=== PATIENT | female | born 1980 | race Caucasian/White ===

== ENCOUNTER 2016-08-23 16:48 | Emergency (ER) | payer MEDICAID ==
[~2016-08-23] VITALS: Wt 76.0 kg
[~2016-08-23 16:48] MED LIST: CALC-649; FAMO-18 PO; FERR27TA; HYDR-3498 PO; IBUP-1542 PO; NITR-58 PO; PREN1TAB12
[2016-08-23 19:05] LABS: ADD UMIC YES; URINE BILIRUBIN (Dip) NEGATIVE (NEGATIVE); URINE BLOOD (Dip) 3+ (NEGATIVE); URINE COLOR LT. YELLOW (YELLOW); URINE GLUCOSE (Dip) NEGATIVE (NEGATIVE); URINE KETONES (Dip) NEGATIVE (NEGATIVE); URINE LEUKOCYTE ESTERASE (Dip) 1+ (NEGATIVE); URINE NITRITE (Dip) NEGATIVE (NEGATIVE); URINE TOTAL PROTEIN (Dip) NEGATIVE (NEGATIVE); URINE UROBILINOGEN (Dip) 0.2 E.U./dL (0.1-1.0)
[2016-08-23 19:25] LABS: BACTERIA,URINE MODERATE; URINE RBCS >200 /HPF (0)
[2016-08-23] MEDS ORDERED: CIPR500T4 PO (19:37)
[2016-08-23 19:49] VITALS: BP 118/59; PULSE 65; RESP 18; TEMP 98.2
--- NOTE | 2016-08-24 02:48 | ERA ---
ER Documentation Chief Complaint Date/Time DATE: 08/24/16 TIME: 02:44 Chief Complaint L RIB AND BREAST PAIN X 1 WEEK HPI Patient is a 36-year-old female with a chief complaint of bleeding 1 week. Patient was seen by her COMMERCIAL ANNOUNCER and told that she had "dirty blood". Patient's last menses was July 02, 2016. Patient denies fever. ROS All systems reviewed and are negative except as per history of present illness. Medications Home Meds Active Scripts Ciprofloxacin Hcl* (Ciprofloxacin Hcl*) 500 Mg Tablet, 500 MG PO BID for 5 Days , TAB Prov:AMADOR BALDERAS PA-C 08/23/16 Famotidine* (Pepcid*) 20 Mg Tablet, 20 MG PO BID for 4 Days, TAB Prov:MADHAV SERRANO PA-C 10/03/15 Hydrocodone Bit-Acetaminophen* ([place]*) 5-325 Mg Tab, 1 TAB PO Q6 Y for PAIN, # 7 TAB Prov:MADHAV SERRANO PA-C 10/03/15 Nitrofurantoin Monohyd Macrocr* (Macrobid*) 100 Mg Capsr, 100 MG PO BID, #14 CAP 0 Refills Prov:PEBBLES ROJO PA-C 08/01/15 Ibuprofen* (Motrin*) 600 Mg Tab, 600 MG PO BID, #30 TAB 0 Refills Prov:PEBBLES ROJO PA-C 08/01/15 Reported Medications Calcium Carbonate (Calcium) 1 Tab Tablet 10/26/09 Ferrous Sulfate (Iron) 1 Tab Tablet 10/26/09 Vit/Fe Fumarate/Fa ( 1-1 Tablet) 1 Tab Tablet 05/18/09 Allergies Allergies: Coded Allergies: No Known Drug Allergies (Verified Allergy, Mild, 05/18/09) PMhx/Soc History of Surgery: Yes (NOSE SURGERY) Anesthesia Reaction: No Hx Neurological Disorder: No Hx Respiratory Disorders: Yes (ASTHMA) Hx Cardiac Disorders: No Hx Psychiatric Problems: No Hx Miscellaneous Medical Probl: No Hx Alcohol Use: No Hx Substance Use: No Hx Tobacco Use: No Physical Exam Vitals Vital Signs Date Time Temp Pulse Resp B/P Pulse Ox O2 Delivery O2 Flow Rate FiO2 08/23/16 19:49 98.2 65 18 118/59 99 08/23/16 16:49 98.0 78 18 115/57 99 Physical Exam Const: Obese 36-year-old female Head: Atraumatic Eyes: Normal Conjunctiva ENT: Normal External Ears, Nose and Mouth. Neck: Full range of motion..~ No meningismus. Resp: Clear to auscultation bilaterally Cardio: Regular rate and rhythm, no murmurs Abd: Soft, non tender, non distended. Normal bowel sounds. Mild suprapubic tenderness Skin: No petechiae or rashes Back: No midline or flank tenderness Ext: No cyanosis, or edema Neur: Awake and alert Psych: Normal Mood and Affect Results 24 hrs Laboratory Tests Test 08/23/16 18:50 Urine Color LT. YELLOW Urine Clarity SLIGHTLY CLOUDY Urine pH 7.5 Urine Specific [place] 1.010 Urine Ketones NEGATIVE Urine Nitrite NEGATIVE Urine Bilirubin NEGATIVE Urine Urobilinogen 0.2 E.U./dL Urine Leukocyte Esterase 1+ Urine Microscopic RBC >200/HPF Urine Microscopic WBC 5-10/HPF Urine Epithelial Cells MODERATE Urine Bacteria MODERATE Urine Hemoglobin 3+ Urine Glucose NEGATIVE% Urine Total Protein NEGATIVE Procedures/MDM Patient has had "dirty blood." Patient also describes hematuria. Patient had mild suprapubic tenderness. Patient has no fever and has no CVA tenderness. Patient's test was negative at this time the most likely diagnosis is hemorrhagic cystitis. I discussed my assessment and plan with my attending and he is in agreement. Departure Diagnosis: Primary Impression: Hemorrhagic cystitis Additional Impression: Cystitis Condition: Stable Patient Instructions: Bladder Infection (Cystitis), Female (Child) Additional Instructions: Return to the emergency department if symptoms worsen or persist. Follow-up with a aircraft structural repairer within the next 1-3 days for further evaluation. AMADOR BALDERAS PA-C Aug 24, 2016 02:47
== END 2016-08-23 19:49 | disposition home or self-care (01) ==
LOC: FTE 16:48
DX: N30.90 Cystitis, unspecified without hematuria (principal); J45.909 Unspecified asthma, uncomplicated
CPT/HCPCS: 81001; 81003; 99283

== ENCOUNTER 2017-04-19 11:19 | Inpatient (IN) | payer MEDICAID ==
[~2017-04-19] VITALS: Ht 162.6 cm; Wt 94.6 kg
[~2017-04-19 11:19] MED LIST changes: +CIPR500T4 PO; -FAMO-18 PO; +FAMO-96 PO
[2017-04-19 11:32] VITALS: Ht 162.6 cm; Wt 94.6 kg
[2017-04-19 11:33] VITALS: BP 118/64; PULSE 62; RESP 18
[2017-04-19] MEDS: LACTATED RINGER'S 1,000 ML IV SCH ×4 (12:11→22:58)
--- NOTE | 2017-04-19 12:18 | NSTRPT ---
NST Information Datetime Report Generated by CPN: 04/19/2017 12:17 Datetime: 04/19/2017 09:10 NST Information EGA: 34.2 Test Number: 5 Time on Monitor: 04/19/2017 10:05 Time off Monitor: 04/19/2017 10:35 NST Duration (Min): 30 Reason for NST: Diabetes Mellitus Reason for NST Other: A1DM Test and Monitor Explained: Monitor Explained; Test Explained; Verbalized Understanding Pulse: 66 Resp: 17 SBP: 113 DBP: 64 Test Evaluation NST Interventions: PO Hydration; Reposition Patient Patient States Movement: Present Contraction Frequency: NONE FHR Baseline : 150 Variability: Moderate 6-25bpm Accelerations: 15X15 Decelerations: None FHR Category: Category I NST Results: Reactive Provider Notified: Dr Lorenzo Comments: Pt to U/S, AMALIA 5.5cm, cephalic. Report called to Dr Lorenzo, orders recieved to sent pt t o OB triage for SROM+. Pt rescheudled for NST and escorted to hospital. Electronically Signed By E-Signature: with User ID: [id number]
[2017-04-19] MEDS ORDERED: GLUCAGON 1 MG INJ IM PRN (15:30)
[2017-04-19] MEDS ORDERED: GLUCOSE GEL 15 GRAM TUBE BUCCAL PRN (15:30)
[2017-04-19] MEDS ORDERED: GLUCOSE GEL 15 GRAM TUBE PO PRN ×2 (15:30)
[2017-04-19] MEDS ORDERED: DEXTROSE 50% 50 ML SYRINGE IV PRN ×2 (15:30)
--- NOTE | 2017-04-19 15:42 | TRIAGE ---
OB Triage Datetime Report Generated by CPN: 04/19/2017 15:42 Datetime: 04/19/2017 14:50 Assessment Type: Admission Assessment Vaginal Bleeding: None Maternal Assessment Level of Consciousness: Fully Conscious DTR's/Clonus: DTRs 2+; No Clonus Headache: Denies Blurred Vision: No Respiratory Effort: Unlabored; Regular Rhythm; Equal Expansion Breath Sounds, Left: Clear and Equal Breath Sounds, Right: Clear and Equal Nausea/Vomiting: Denies RUQ Epigastric Pain: Denies Lower Extremities Edema: None Upper Extremities Edema: None Facial Edema: None Fall Risk Assessment History of Falling: (0) No Secondary Diagnosis: (0) No Ambulatory Aid: (0) Bedrest/Nurse Assist IV Therapy: (20) Yes (Annotations: rcvd. pt. w/ 18g iv rt. wrist lr at 125ml/hr infising) Gait: (0) Normal/Bedrest/Immobile Mental Status: (0) Oriented to Own Ability Fall Score: 20 Fall Risk Score Definition: No Risk: No action required Pain Assessment Pain Scale: 2 Pain Presence: Constant Pain Type: Burning Pain Location: when pt. urinates Datetime: 04/19/2017 13:56 Labor Evaluation Frequency: OCC Monitor Mode: External Quality: Mild Pattern: Normal: <= 5 Contractions in 10 Minutes Resting Tone Melvin: Relaxed Heart Rate FHR Baseline Rate: 140 Monitor Mode: External US FHR Baseline Changes: No Baseline Change Variability: Moderate 6-25 bpm Accelerations: 15X15 Decelerations: None Category: Category I Pain Presence: None/Denies Datetime: 04/19/2017 12:55 Labor Evaluation Frequency: OCC Monitor Mode: External Quality: Mild Pattern: Normal: <= 5 Contractions in 10 Minutes Resting Tone Melvin: Relaxed Heart Rate FHR Baseline Rate: 140 Monitor Mode: External US FHR Baseline Changes: No Baseline Change Variability: Moderate 6-25 bpm Accelerations: 15X15 Decelerations: None Category: Category I Pain Presence: None/Denies Datetime: 04/19/2017 12:14 Stage of : OB Triage Labor Evaluation Frequency: none Pattern: Normal: <= 5 Contractions in 10 Minutes Heart Rate FHR Baseline Rate: 150 Monitor Mode: External US FHR Baseline Changes: No Baseline Change Variability: Moderate 6-25 bpm Accelerations: 15X15 Decelerations: None Category: Category I Datetime: 04/19/2017 11:56 Stage of : OB Triage Headache: Denies Blurred Vision: No RUQ Epigastric Pain: Denies Facial Edema: None Labor Evaluation Frequency: non Heart Rate FHR Baseline Rate: 140 Monitor Mode: External US FHR Baseline Changes: No Baseline Change Variability: Moderate 6-25 bpm Accelerations: 15X15 Decelerations: None Category: Category I Pain Presence: None/Denies Vaginal Exam Membrane Status: Intact Datetime: 04/19/2017 11:34 Stage of : OB Triage Labor Evaluation Frequency: none Pattern: Normal: <= 5 Contractions in 10 Minutes Heart Rate FHR Baseline Rate: 145 Monitor Mode: External US FHR Baseline Changes: No Baseline Change Variability: Moderate 6-25 bpm Accelerations: 15X15 Decelerations: None Category: Category I Vaginal Exam Membrane Status: Intact Datetime: 04/19/2017 11:30 Stage of : OB Triage Maternal Assessment Level of Consciousness: Fully Conscious DTR's/Clonus: DTRs 2+; No Clonus Headache: Denies Blurred Vision: No Respiratory Effort: Unlabored; Regular Rhythm; Equal Expansion Breath Sounds, Left: Clear and Equal Breath Sounds, Right: Clear and Equal Nausea/Vomiting: Denies RUQ Epigastric Pain: Denies Lower Extremities Edema: None Degree: None Upper Extremities Edema: None Degree: None Facial Edema: None Temperature Route: Axillary Fall Risk Assessment History of Falling: (0) No Secondary Diagnosis: (0) No Ambulatory Aid: (0) Bedrest/Nurse Assist IV Therapy: (0) No Gait: (0) Normal/Bedrest/Immobile Mental Status: (0) Oriented to Own Ability Fall Score: 0 Fall Risk Score Definition: No Risk: No action required Monitor Mode: External Heart Rate FHR Baseline Rate: 140 Monitor Mode: External US Pain Assessment Pain Scale: 0 Datetime: 04/19/2017 10:36 Time of Arrival: 04/19/2017 10:50 EGA: 34.2 Arrived By: Ambulatory Arrived From: Office Chief Complaint: sent from NST for low AMALIA Movement: Present Contractions: Denies/Absent Rupture of Membranes: Denies Vaginal Bleeding: None Vaginal Discharge: Denies Recent Sexual Intercouse: Denies Abdominal Trauma: Not Applicable Patient Complaints: Other Initial Plan: efm/ iv hyration
[2017-04-19 16:21] LABS: ADD UMIC NO; UR ASCORBIC ACID NEGATIVE (NEGATIVE); UR BILIRUBIN (Dip) NEGATIVE (NEGATIVE); UR BLOOD (Dip) NEGATIVE (NEGATIVE); UR CLARITY CLEAR (CLEAR); UR COLOR STRAW (YELLOW); UR GLUCOSE (Dip) NEGATIVE (NEGATIVE); UR KETONES (Dip) 1+ mg/dL (NEGATIVE); UR LEUKOCYTE ESTERASE (Dip) NEGATIVE Leu/ul (NEGATIVE); UR NITRITE (Dip) NEGATIVE (NEGATIVE); UR SPECIFIC GRAVITY (Dip) 1.005 (1.003-1.030); UR TOTAL PROTEIN (Dip) NEGATIVE (NEGATIVE); UR UROBILINOGEN (Dip) NEGATIVE (NEGATIVE)
[2017-04-19] MEDS: ACCU-CHEK XX SCH ×3 (17:50→21:03)
--- NOTE | 2017-04-19 18:10 | HP ---
Date/Time of Note Date/Time of Note DATE: 04/19/17 TIME: 18:07 OB - History Hx of Present Free Text/Dictation Admitted through nondistressed test unit because of decreased amniotic fluid at 34 weeks Last Menstrual Period: Jul 20, 2016 Estimated Due Date: May 29, 2017 : 5 Para: 2 Spontaneous : 2 Care: Good Care Ultrasounds: Normal mid trimester US Obstetrical Complications: Gestational Diabetes Past Family/Social History * Past Medical, Surgical, Family and Obstetric Histories reviewed from chart. Blood Type: O+ Rubella: immune RPR/VDRL: Negative GBS Status: Unknown HBsAG: Negative OB Admission Exam Vital Signs Vital Signs Vital Signs Date Time Temp Pulse Resp B/P Pulse Ox O2 Delivery O2 Flow Rate FiO2 04/19/17 11:33 98.0 62 18 118/64 98 Physical Exam HEENT: WNL Heart: Rhythm Normal Lungs: Clear, Equal Abdomen: WNL Extremities: Normal Reflexes: Normal Cervical Dilatation: None Effacement: 0% Station: -3 Membranes: Intact Heart Rate: 140's Accelerations: Accelerations Present Decelerations: No Decelerations Varibility: Minimum Contractions on Admission: None Last 72 hourBlood Glucose Bedside Glucose - 72 Hours Test 04/19/17 17:39 Bedside Glucose 68mg/dL (70-220) L OB Assessment/Plan Other Assessment: 34 weeks gestation Decrease amniotic fluid Rupture of membrane is ruled out Other plan: We will perform IV hydration Recheck amniotic fluid volume next day ROBERT OTTO MD Apr 19, 2017 18:09
[2017-04-19] MEDS: CLOTRIMAZOLE 1% 45 GM VAG CR VAG SCH (22:05)
[2017-04-20] MEDS: CLOTRIMAZOLE 1% 30 GM CR TOP SCH ×4 (00:04→21:59)
[2017-04-20] MEDS: LACTATED RINGER'S 1,000 ML IV SCH ×3 (06:37→22:03)
[2017-04-20] MEDS: ACCU-CHEK XX SCH ×8 (08:07→21:00)
[2017-04-20] MEDS: PRENATAL VITAMIN PO SCH (09:17)
--- NOTE | 2017-04-20 09:55 | RADRPT ---
PROCEDURE: US OB biophysical profile. CLINICAL INDICATION: decreased movements, oligohydramnios TECHNIQUE: Multiple sonographic images of the pelvis were obtained. The images were reviewed on a PACS workstation. COMPARISON: No prior studies are available for comparison. FINDINGS: There is a single viable intrauterine gestation. Cardiac activity is present with 171 beats per min luci. There is a vertex presentation. The placenta is left lateral. There is no evidence of placental abruption. There is a decreased amount of amniotic fluid with an AMALIA = 5.9 cm. Biophysical profile: movement 2/2 tone 2/2. breathing 2/2 AMALIA 2/2 Total 12/25 RPTAT: AA . IMPRESSION: Normal biophysical profile. Oligohydramnios. . .Darwin Espinal MD, MD Date Time Electronically viewed and signed by .Darwin Espinal MD, MD on 04/20/2017 09:54 .S/
--- NOTE | 2017-04-20 15:30 | PN ---
Date/Time of Note Date/Time of Note DATE: 04/20/17 TIME: 15:28 OB Subjective Subjective Subjective No major complaints Feels the baby moves well OB Objective Objective Objective Vital signs stable General physical exam is unchanged heart tones are reactive AMALIA is 5.9 OB Assessment/Plan Other Assessment: Decrease amniotic fluid Gestational diabetes 34 weeks gestation Other plan: We will obtain perinatology consult and possibly DC patient home next ROBERT OTTO MD Apr 20, 2017 15:30
[2017-04-20] MEDS: CLOTRIMAZOLE 1% 45 GM VAG CR VAG SCH (20:32)
[2017-04-21] MEDS: CLOTRIMAZOLE 1% 30 GM CR TOP SCH (06:13)
[2017-04-21] MEDS: LACTATED RINGER'S 1,000 ML IV SCH (06:14)
[2017-04-21] MEDS: ACCU-CHEK XX SCH ×4 (07:30→12:16)
[2017-04-21] MEDS: PRENATAL VITAMIN PO SCH (08:48)
--- NOTE | 2017-04-21 10:52 | RADRPT ---
PROCEDURE: US OB limited. CLINICAL INDICATION: Oligohydramnios. TECHNIQUE: Multiple transabdominal sonographic images of the pelvis were obtained. COMPARISON: Biophysical profile 04/20/2017. FINDINGS: There is a single live intrauterine in cephalic presentation with heart motion of 14 2 beats per minute. The placenta is anteriorly located and without evidence of previa or abruption. AMALIA is 6.92 cm, previously 5.88 cm. IMPRESSION: Borderline oligohydramnios. RPTAT: QQ .Kerrie Chawla MD, MD Date Time Electronically viewed and signed by .Kerrie Chawla MD, on 04/21/2017 10:51 .T/
--- NOTE | 2017-04-21 13:59 | DS ---
Date/Time of Note Date/Time of Note Consulted perinatologist recommended DC patient home and follow patient in antepartum unit with biweekly antepartum testing DATE: 04/21/17 TIME: 13:56 Obstetrical Discharge Record Final Diagnosis Final Diagnosis: not delivered Other Final Diagnosis decreased amniotic fluid Complications Gestational Diabetes Condition on Discharge Physical Assessment Last Vitals: see nurses notes Voiding: Yes Bowel Movement: Yes Breast: Soft, non-tender, Filling Fundus: Other ( ) Abdomen and Incision: abdomen: gravid Episiotomy: N/A Calf Tenderness: No Patient Condition: Good ROBERT OTTO MD Apr 21, 2017 13:59
--- NOTE | 2017-04-21 14:01 | DS ---
Date/Time of Note Date/Time of Note DATE: 04/21/17 TIME: 14:00 Discharge Summary Admission/Discharge Info Admit Date/Time Apr 19, 2017 at 14:00 Discharge Date/Time April 21, 2017 Discharge Diagnosis 34 weeks gestation Decrease amniotic fluid Patient Condition: Good Consults Perinatologist Hx of Present Illness 36-year-old female admitted at 34 weeks gestation with decreased amniotic fluid and after a period of observation decision was made by perinatologist to follow the patient as outpatient Hospital Course Uncomplicated Home Meds Active Scripts Ciprofloxacin Hcl* (Ciprofloxacin Hcl*) 500 Mg Tablet, 500 MG PO BID for 5 Days , TAB Prov:AMADOR BALDERAS PA-C 08/23/16 Famotidine* (Pepcid*) 20 Mg Tablet, 20 MG PO BID for 4 Days, TAB Prov:MADHAV SERRANO PA-C 10/03/15 Hydrocodone Bit-Acetaminophen* ([place]*) 5-325 Mg Tab, 1 TAB PO Q6 Y for PAIN, # 7 TAB Prov:MADHAV SERRANO PA-C 10/03/15 Nitrofurantoin Monohyd Macrocr* (Macrobid*) 100 Mg Capsr, 100 MG PO BID, #14 CAP 0 Refills Prov:PEBBLES ROJO PA-C 08/01/15 Ibuprofen* (Motrin*) 600 Mg Tab, 600 MG PO BID, #30 TAB 0 Refills Prov:PEBBLES ROJO PA-C 08/01/15 Reported Medications Calcium Carbonate (Calcium) 1 Tab Tablet 10/26/09 Ferrous Sulfate (Iron) 1 Tab Tablet 10/26/09 Vit/Fe Fumarate/Fa ( 1-1 Tablet) 1 Tab Tablet 05/18/09 Follow-up Plan Next day or 2 days for antepartum testing Primary Care Provider Care Physician No Primary Time spent on discharge: > 30 minutes Pending Labs Laboratory Tests Test 04/20/17 15:13 04/20/17 17:19 04/20/17 20:08 04/21/17 08:01 Bedside Glucose 91mg/dL (70-220) 72mg/dL (70-220) 88mg/dL (70-220) 67mg/dL (70-220) Test 04/21/17 11:01 Bedside Glucose 87mg/dL (70-220) ROBERT OTTO MD Apr 21, 2017 14:01
--- NOTE | 2017-04-21 14:03 | PD.PPDC ---
[employer] Discharge Instruction Provider Information Physician Information 36-year-old female at 34 weeks gestation admitted with decreased amniotic fluid which spontaneously and with IV hydration ameliorated Diagnosis Final Diagnosis: 34 weeks gestation with decreased amniotic fluid Condition Patient Condition: Good Diet Diet: Resume Regular Diet Activity/Restrictions Activity: Normal Activity May Shower Return to Work or School: Apr 22, 2017 Follow-up Follow-up with Physician: 1, 2, Day/Days (In antepartum testing unit, to 3 days in clinic) Return to clinic for Comment: Refer to antepartum testing unit for antepartum testing ROBERT OTTO MD Apr 21, 2017 14:03
== END 2017-04-21 14:53 | disposition home or self-care (01) | DRG 781 ==
LOC: OBT 11:19 → L-D 11:20 → OBT 14:00 → OBG 14:00
PROVIDERS: ADMIT Obstetrics & Gynecology; ATTEND Obstetrics & Gynecology
DX: O41.8X30 Other specified disorders of amniotic fluid and membranes, third trimester, not applicable or unspecified (principal); O24.419 Gestational diabetes mellitus in pregnancy, unspecified control
CPT/HCPCS: 36415; 76816; 76818; 81003; 82962; 84112; 87086; 96360; 96361; G0463; J7120

== ENCOUNTER 2017-04-26 10:51 | Outpatient (CLI) | payer MEDICAID ==
[~2017-04-26] VITALS: Ht 160 cm; Wt 94.5 kg
[~2017-04-26 10:51] MED LIST changes: -CIPR500T4 PO; -HYDR-3498 PO; -IBUP-1542 PO; -NITR-58 PO
--- NOTE | 2017-04-26 11:42 | NSTRPT ---
NST Information Datetime Report Generated by CPN: 04/26/2017 11:41 Datetime: 04/26/2017 08:08 NST Information Test Number: 5 Reason for NST: Diabetes Mellitus; Oligohydramnios; Previous Demise; Other Reason for NST Other: A1DM Test Evaluation Comments: To u/s, AMALIA 5.7, Cephalic. NST/AMALIA reviewed by Dr Rey, requests BPP. BPP 48 (0-tone, 0-movement). Recommends extended efm. 1015-Report to duran Drake received , report called to Zina ARTEAGA/Triage. POC explained to pt by Hong Lim, states understanding and denies further questions at this time. Datetime: 04/22/2017 09:21 Electronically Signed By E-Signature: with User ID: [id number]
[2017-04-26 11:47] VITALS: Ht 160 cm; Wt 94.5 kg
[2017-04-26] MEDS ORDERED: LACTATED RINGER'S 1,000 ML IV ONE (12:00)
--- NOTE | 2017-04-26 13:33 | RADRPT ---
PROCEDURE: Obstetrical ultrasound for biophysical profile CLINICAL INDICATION: Biophysical profile. . TECHNIQUE: Obstetrical ultrasound of the uterus for biophysical profile. Transabdominal views are obtained. COMPARISON: MG 04/26/2017; US PELVIS 04/20/2017 FINDINGS: Single intrauterine gestation. Presentation: Cephalic. Placenta: Anterior. No evidence of placental abruption. No evidence of placenta previa. breathing movement = 2/2 tone = 2/2 motion = 2/2 AMALIA = 2/2 AMALIA = 5.0 cm heart rate: 158 beats per minute IMPRESSION: Single intrauterine gestation. Biophysical profile 12/25 Borderline oligohydramnios. RPTAT: AADD .Rome Dunn MD, MD Date Time Electronically viewed and signed by .Rome Dunn MD, on 04/26/2017 13:33 .B/
--- NOTE | 2017-04-26 14:19 | NSTRPT ---
NST Information Datetime Report Generated by CPN: 04/26/2017 14:19 Datetime: 04/26/2017 08:08 NST Information EGA: 35.2 Time on Monitor: 04/26/2017 08:34 Time off Monitor: 04/26/2017 09:32 NST Duration (Min): 58 Test and Monitor Explained: Monitor Explained; Test Explained; Verbalized Understanding Pulse: 77 Resp: 18 SBP: 107 DBP: 62 Test Evaluation NST Interventions: None Patient States Movement: Present Contraction Frequency: none FHR Baseline : 150 Variability: Moderate 6-25bpm Accelerations: 15X15 FHR Category: Category I NST Results: Reactive Electronically Signed By E-Signature: with User ID: [id number], Addendum/Amendment: Discussed with Dr. Lorenzo. Given this patient's past history, I do not anticip ate that she will have a sustained elevation in AMALIA. I would favor daily BPP; if the BPP is 8/10 it would be acceptable to discharge her with close follow up. If 6/10 I would continue observation in the hospital. If the BPP is less than 6/10 I would proceed to delivery.
--- NOTE | 2017-04-26 15:13 | PN ---
Triage Information Date/Time April 26, 2017 Reason for visit: Sent him for biophysical profile because of a poor biophysical profile and nonstress test unit Weeks of Gestation 35 weeks /Para 5 para Diabetes: gestational Diabetes management: diet controlled Hypertention: none Additional information Patient with chronically low amniotic fluid and poor biophysical today was 17 by perinatologist we be evaluated for another biophysical profile and as much as nondistressed test remained reactive Recommendation of Dr. Chow was to start IV hydration and repeat the biophysical and 2 hours After 2 hours biophysical profile is 8 out 8 As mentioned before patient chronically low amniotic fluid Currently has no complaint of decreased movement We will continue daily nondistressed test and biophysical profile on this lady because of history of demise and previous Objective Heart Rate: 150's Heart Rate Comments Reactive Contractions: None Exam Deferred Results/Medications Imaging Results Single intrauterine gestation. Biophysical profile 12/25 Borderline oligohydramnios. Disposition: Discharge Assessment/Plan Patient was discharged home Kick count instructions given Recommended patient to have dating on a stress test and biophysical profile at least until 37 weeks We will follow patient very very close ROBERT OTTO MD Apr 26, 2017 15:13
--- NOTE | 2017-04-26 16:16 | TRIAGE ---
OB Triage Datetime Report Generated by CPN: 04/26/2017 16:15 Datetime: 04/26/2017 10:53 Stage of : OB Triage Datetime: 04/26/2017 08:22 Time of Arrival: 04/26/2017 10:48 EGA: 35.2 Arrived By: Ambulatory Arrived From: Other Unit in Hospital Chief Complaint: BPP 4/8 in NST, prolonged monitoring Movement: Decreased Contractions: Denies/Absent Rupture of Membranes: Denies Vaginal Bleeding: Normal Show Vaginal Discharge: Denies Recent Sexual Intercouse: Denies Abdominal Trauma: Not Applicable Patient Complaints: None Time Provider Notified: 04/26/2017 11:08 Provider Notified: Bj Initial Plan: BPP, NST, IV hydration Datetime: 04/21/2017 13:27 Stage of : Antepartum Maternal Assessment Level of Consciousness: Fully Conscious Headache: Denies Nausea/Vomiting: Denies RUQ Epigastric Pain: Denies Labor Evaluation Frequency: 0/hr Monitor Mode: External Heart Rate FHR Baseline Rate: 150 Monitor Mode: External US Variability: Moderate 6-25 bpm Accelerations: 15X15 Decelerations: None Pain Assessment Pain Scale: 0 Pain Presence: None/Denies Vaginal Bleeding: None Datetime: 04/21/2017 12:20 Stage of : Antepartum Maternal Assessment Level of Consciousness: Fully Conscious Headache: Denies Nausea/Vomiting: Denies RUQ Epigastric Pain: Denies Pain Assessment Pain Scale: 0 Pain Presence: None/Denies Vaginal Bleeding: None Datetime: 04/21/2017 12:15 Stage of : Antepartum Maternal Assessment Level of Consciousness: Fully Conscious Headache: Denies Nausea/Vomiting: Denies RUQ Epigastric Pain: Denies Labor Evaluation Frequency: 0/hr Monitor Mode: External Heart Rate FHR Baseline Rate: 150 Monitor Mode: External US Variability: Moderate 6-25 bpm Accelerations: 15X15 Decelerations: None Pain Assessment Pain Scale: 0 Pain Presence: None/Denies Vaginal Bleeding: None Datetime: 04/21/2017 11:00 Stage of : Antepartum Maternal Assessment Level of Consciousness: Fully Conscious Headache: Denies Nausea/Vomiting: Denies RUQ Epigastric Pain: Denies Labor Evaluation Frequency: 0/hr Monitor Mode: External Heart Rate FHR Baseline Rate: 145 Monitor Mode: External US Variability: Moderate 6-25 bpm Accelerations: 15X15 Decelerations: None Pain Assessment Pain Scale: 0 Pain Presence: None/Denies Vaginal Bleeding: None Datetime: 04/21/2017 10:00 Stage of : Antepartum Maternal Assessment Level of Consciousness: Fully Conscious Headache: Denies Nausea/Vomiting: Denies RUQ Epigastric Pain: Denies Labor Evaluation Frequency: 0/hr Monitor Mode: External Heart Rate FHR Baseline Rate: 145 Monitor Mode: External US Variability: Moderate 6-25 bpm Accelerations: 15X15 Decelerations: None Pain Assessment Pain Scale: 0 Pain Presence: None/Denies Vaginal Bleeding: None Datetime: 04/21/2017 09:00 Stage of : Antepartum Maternal Assessment Level of Consciousness: Fully Conscious Headache: Denies Nausea/Vomiting: Denies RUQ Epigastric Pain: Denies Labor Evaluation Frequency: 0/hr Monitor Mode: External Heart Rate FHR Baseline Rate: 145 Monitor Mode: External US Variability: Moderate 6-25 bpm Accelerations: 15X15 Decelerations: None Pain Assessment Pain Scale: 0 Pain Presence: None/Denies Vaginal Bleeding: None Datetime: 04/21/2017 08:46 Pain Presence: None/Denies Datetime: 04/21/2017 08:00 Stage of : Antepartum Maternal Assessment Level of Consciousness: Fully Conscious Headache: Denies Blurred Vision: No Respiratory Effort: Unlabored Nausea/Vomiting: Denies Temperature Route: Oral Bedside Blood Glucose: 67 Labor Evaluation Frequency: 0/hr Monitor Mode: External Datetime: 04/21/2017 07:40 Assessment Type: Ongoing Assessment Maternal Assessment Level of Consciousness: Fully Conscious DTR's/Clonus: DTRs 2+; No Clonus Headache: Denies Blurred Vision: No Respiratory Effort: Unlabored; Regular Rhythm; Equal Expansion Breath Sounds, Left: Clear and Equal Breath Sounds, Right: Clear and Equal Nausea/Vomiting: Denies RUQ Epigastric Pain: Denies Lower Extremities Edema: None Upper Extremities Edema: None Facial Edema: None Fall Risk Assessment History of Falling: (0) No Secondary Diagnosis: (0) No Ambulatory Aid: (0) Bedrest/Nurse Assist IV Therapy: (20) Yes Gait: (0) Normal/Bedrest/Immobile Mental Status: (0) Oriented to Own Ability Fall Score: 20 Fall Risk Score Definition: No Risk: No action required Datetime: 04/21/2017 07:30 Stage of : Antepartum Labor Evaluation Frequency: 0/hr Monitor Mode: External Heart Rate FHR Baseline Rate: 140 Monitor Mode: External US Variability: Moderate 6-25 bpm Accelerations: 15X15 Decelerations: None Category: Category I Datetime: 04/21/2017 06:58 Stage of : Antepartum Labor Evaluation Frequency: 0 Monitor Mode: External Pattern: Normal: <= 5 Contractions in 10 Minutes Heart Rate FHR Baseline Rate: 140 Monitor Mode: External US Variability: Moderate 6-25 bpm Accelerations: 15X15 Decelerations: None Pain Assessment Pain Scale: 0 Pain Presence: None/Denies Datetime: 04/21/2017 06:00 Stage of : Antepartum Labor Evaluation Frequency: 0 Monitor Mode: External Pattern: Normal: <= 5 Contractions in 10 Minutes Heart Rate FHR Baseline Rate: 140 Monitor Mode: External US Variability: Moderate 6-25 bpm Accelerations: 15X15 Decelerations: None Category: Category I Pain Assessment Pain Scale: 0 Pain Presence: None/Denies Datetime: 04/21/2017 05:00 Stage of : Antepartum Labor Evaluation Frequency: 0 Monitor Mode: External Pattern: Normal: <= 5 Contractions in 10 Minutes Heart Rate FHR Baseline Rate: 140 Monitor Mode: External US Variability: Moderate 6-25 bpm Accelerations: 15X15 Decelerations: None Category: Category I Pain Assessment Pain Scale: 0 Pain Presence: None/Denies Datetime: 04/21/2017 04:00 Stage of : Antepartum Labor Evaluation Frequency: 0 Monitor Mode: External Pattern: Normal: <= 5 Contractions in 10 Minutes Heart Rate FHR Baseline Rate: 140 Monitor Mode: External US Variability: Moderate 6-25 bpm Accelerations: 15X15 Decelerations: None Category: Category I Pain Assessment Pain Scale: 0 Pain Presence: None/Denies Datetime: 04/21/2017 03:00 Stage of : Antepartum Labor Evaluation Frequency: 0 Monitor Mode: External Pattern: Normal: <= 5 Contractions in 10 Minutes Heart Rate FHR Baseline Rate: 140 Monitor Mode: External US Variability: Moderate 6-25 bpm Accelerations: 15X15 Decelerations: None Category: Category I Pain Assessment Pain Scale: 0 Pain Presence: None/Denies Datetime: 04/21/2017 02:00 Stage of : Antepartum Labor Evaluation Frequency: 0 Monitor Mode: External Pattern: Normal: <= 5 Contractions in 10 Minutes Heart Rate FHR Baseline Rate: 135 Monitor Mode: External US Variability: Moderate 6-25 bpm Accelerations: 15X15 Decelerations: None Category: Category I Pain Assessment Pain Scale: 0 Datetime: 04/21/2017 01:00 Stage of : Antepartum Labor Evaluation Frequency: 0 Monitor Mode: External Pattern: Normal: <= 5 Contractions in 10 Minutes Heart Rate FHR Baseline Rate: 130 Monitor Mode: External US Variability: Moderate 6-25 bpm Accelerations: 15X15 Decelerations: None Category: Category I Pain Assessment Pain Scale: 0 Datetime: 04/21/2017 00:00 Stage of : Antepartum Labor Evaluation Frequency: 0 Monitor Mode: External Pattern: Normal: <= 5 Contractions in 10 Minutes Heart Rate FHR Baseline Rate: 140 Monitor Mode: External US Variability: Moderate 6-25 bpm Accelerations: 15X15 Decelerations: None Category: Category I Pain Assessment Pain Scale: 0 Pain Presence: None/Denies Datetime: 04/20/2017 23:00 Stage of : Antepartum Labor Evaluation Frequency: 0 Monitor Mode: External Pattern: Normal: <= 5 Contractions in 10 Minutes Heart Rate FHR Baseline Rate: 135 Monitor Mode: External US Variability: Moderate 6-25 bpm Accelerations: 15X15 Decelerations: None Category: Category I Pain Assessment Pain Scale: 0 Pain Presence: None/Denies Datetime: 04/20/2017 22:00 Stage of : Antepartum Maternal Assessment Level of Consciousness: Fully Conscious Labor Evaluation Frequency: 0 Monitor Mode: External Pattern: Normal: <= 5 Contractions in 10 Minutes Heart Rate FHR Baseline Rate: 135 Monitor Mode: External US Variability: Moderate 6-25 bpm Accelerations: 15X15 Decelerations: None Category: Category I Pain Assessment Pain Scale: 0 Pain Presence: None/Denies Datetime: 04/20/2017 21:00 Stage of : Antepartum Maternal Assessment Level of Consciousness: Fully Conscious Labor Evaluation Frequency: x1 Monitor Mode: External Duration (sec)2399: 50 Quality: Mild Pattern: Normal: <= 5 Contractions in 10 Minutes Heart Rate FHR Baseline Rate: 140 Monitor Mode: External US Variability: Moderate 6-25 bpm Accelerations: 15X15 Decelerations: Variable Category: Category II Pain Assessment Pain Scale: 0 Pain Presence: None/Denies Datetime: 04/20/2017 20:14 Assessment Type: Ongoing Assessment Maternal Assessment Level of Consciousness: Fully Conscious DTR's/Clonus: DTRs 2+; No Clonus Headache: Denies Blurred Vision: No Respiratory Effort: Unlabored; Regular Rhythm; Equal Expansion Nausea/Vomiting: Denies RUQ Epigastric Pain: Denies Lower Extremities Edema: None Upper Extremities Edema: None Facial Edema: None Fall Risk Assessment History of Falling: (0) No Secondary Diagnosis: (0) No Ambulatory Aid: (0) Bedrest/Nurse Assist IV Therapy: (0) No Gait: (0) Normal/Bedrest/Immobile Mental Status: (0) Oriented to Own Ability Fall Score: 0 Fall Risk Score Definition: No Risk: No action required Datetime: 04/20/2017 20:00 Stage of : Antepartum Maternal Assessment Level of Consciousness: Fully Conscious Temperature Route: Oral Labor Evaluation Frequency: x1 Monitor Mode: External Duration (sec)2399: 50 Quality: Mild Pattern: Normal: <= 5 Contractions in 10 Minutes Heart Rate FHR Baseline Rate: 140 Monitor Mode: External US Variability: Moderate 6-25 bpm Accelerations: 15X15 Decelerations: None Category: Category I Pain Assessment Pain Scale: 0 Pain Presence: None/Denies Datetime: 04/20/2017 19:00 Stage of : Antepartum Maternal Assessment Level of Consciousness: Fully Conscious Headache: Denies Nausea/Vomiting: Denies RUQ Epigastric Pain: Denies Labor Evaluation Frequency: x1 Monitor Mode: External Duration (sec)2399: 50 Quality: Mild Pattern: Normal: <= 5 Contractions in 10 Minutes Heart Rate FHR Baseline Rate: 145 Monitor Mode: External US Variability: Moderate 6-25 bpm Accelerations: 15X15 Decelerations: None Category: Category I Pain Assessment Pain Scale: 0 Pain Presence: None/Denies Vaginal Bleeding: None Datetime: 04/20/2017 18:00 Stage of : Antepartum Maternal Assessment Level of Consciousness: Fully Conscious Headache: Denies Nausea/Vomiting: Denies RUQ Epigastric Pain: Denies Labor Evaluation Frequency: 0/hr Monitor Mode: External Heart Rate FHR Baseline Rate: 150 Monitor Mode: External US Variability: Moderate 6-25 bpm Accelerations: 15X15 Decelerations: None Pain Assessment Pain Scale: 0 Pain Presence: None/Denies Vaginal Bleeding: None Datetime: 04/20/2017 17:00 Stage of : Antepartum Maternal Assessment Level of Consciousness: Fully Conscious Headache: Denies Nausea/Vomiting: Denies RUQ Epigastric Pain: Denies Labor Evaluation Frequency: 0/hr Monitor Mode: External Heart Rate FHR Baseline Rate: 150 Monitor Mode: External US Variability: Moderate 6-25 bpm Accelerations: 15X15 Decelerations: None Pain Assessment Pain Scale: 0 Pain Presence: None/Denies Vaginal Bleeding: None Datetime: 04/20/2017 15:12 Maternal Assessment Level of Consciousness: Fully Conscious Headache: Denies Blurred Vision: No Respiratory Effort: Unlabored Nausea/Vomiting: Denies Pain Presence: None/Denies Datetime: 04/20/2017 15:00 Stage of : Antepartum Maternal Assessment Level of Consciousness: Fully Conscious Headache: Denies Nausea/Vomiting: Denies RUQ Epigastric Pain: Denies Labor Evaluation Frequency: 0/hr Monitor Mode: External Heart Rate FHR Baseline Rate: 145 Monitor Mode: External US Variability: Moderate 6-25 bpm Accelerations: 15X15 Decelerations: None Pain Assessment Pain Scale: 0 Pain Presence: None/Denies Vaginal Bleeding: None Datetime: 04/20/2017 14:00 Stage of : Antepartum Maternal Assessment Level of Consciousness: Fully Conscious Headache: Denies Nausea/Vomiting: Denies RUQ Epigastric Pain: Denies Labor Evaluation Frequency: 0/hr Monitor Mode: External Heart Rate FHR Baseline Rate: 145 Monitor Mode: External US Variability: Moderate 6-25 bpm Accelerations: 15X15 Decelerations: None Pain Assessment Pain Scale: 0 Pain Presence: None/Denies Vaginal Bleeding: None Datetime: 04/20/2017 13:00 Stage of : Antepartum Maternal Assessment Level of Consciousness: Fully Conscious Headache: Denies Nausea/Vomiting: Denies RUQ Epigastric Pain: Denies Labor Evaluation Frequency: 0/hr Monitor Mode: External Heart Rate FHR Baseline Rate: 150 Monitor Mode: External US Variability: Moderate 6-25 bpm Accelerations: 15X15 Decelerations: None Pain Assessment Pain Scale: 0 Pain Presence: None/Denies Vaginal Bleeding: None Datetime: 04/20/2017 12:00 Stage of : Antepartum Maternal Assessment Level of Consciousness: Fully Conscious Headache: Denies Nausea/Vomiting: Denies RUQ Epigastric Pain: Denies Labor Evaluation Frequency: 0/hr Monitor Mode: External Heart Rate FHR Baseline Rate: 150 Monitor Mode: External US Variability: Moderate 6-25 bpm Accelerations: 15X15 Decelerations: None Pain Assessment Pain Scale: 0 Pain Presence: None/Denies Vaginal Bleeding: None Datetime: 04/20/2017 11:00 Stage of : Antepartum Maternal Assessment Level of Consciousness: Fully Conscious Headache: Denies Nausea/Vomiting: Denies RUQ Epigastric Pain: Denies Labor Evaluation Frequency: 0/hr Monitor Mode: External Heart Rate FHR Baseline Rate: 150 Monitor Mode: External US Variability: Moderate 6-25 bpm Accelerations: 15X15 Decelerations: None Pain Assessment Pain Scale: 0 Pain Presence: None/Denies Vaginal Bleeding: None Datetime: 04/20/2017 10:00 Stage of : Antepartum Maternal Assessment Level of Consciousness: Fully Conscious Headache: Denies Nausea/Vomiting: Denies RUQ Epigastric Pain: Denies Labor Evaluation Frequency: 0/hr Monitor Mode: External Heart Rate FHR Baseline Rate: 145 Monitor Mode: External US Variability: Moderate 6-25 bpm Accelerations: 15X15 Decelerations: None Pain Assessment Pain Scale: 0 Pain Presence: None/Denies Vaginal Bleeding: None Datetime: 04/20/2017 09:57 Maternal Assessment Level of Consciousness: Fully Conscious Headache: Denies Blurred Vision: No Nausea/Vomiting: Denies Pain Presence: None/Denies Datetime: 04/20/2017 09:16 Maternal Assessment Level of Consciousness: Fully Conscious Headache: Denies Blurred Vision: No Respiratory Effort: Unlabored Nausea/Vomiting: Denies Pain Presence: None/Denies Datetime: 04/20/2017 09:00 Stage of : Antepartum Maternal Assessment Level of Consciousness: Fully Conscious Headache: Denies Nausea/Vomiting: Denies RUQ Epigastric Pain: Denies Labor Evaluation Frequency: 0/hr Monitor Mode: External Heart Rate FHR Baseline Rate: 150 Monitor Mode: External US Variability: Moderate 6-25 bpm Accelerations: 15X15 Decelerations: None Pain Assessment Pain Scale: 0 Pain Presence: None/Denies Vaginal Bleeding: None Datetime: 04/20/2017 08:05 Maternal Assessment Level of Consciousness: Fully Conscious Headache: Denies Blurred Vision: No Nausea/Vomiting: Denies Bedside Blood Glucose: 78 Datetime: 04/20/2017 08:00 Stage of : Antepartum Maternal Assessment Level of Consciousness: Fully Conscious Headache: Denies Nausea/Vomiting: Denies RUQ Epigastric Pain: Denies Labor Evaluation Frequency: 0/hr Monitor Mode: External Heart Rate FHR Baseline Rate: 150 Monitor Mode: External US Variability: Moderate 6-25 bpm Accelerations: 15X15 Decelerations: None Pain Assessment Pain Scale: 0 Pain Presence: None/Denies Vaginal Bleeding: None Datetime: 04/20/2017 07:56 Assessment Type: Ongoing Assessment Maternal Assessment Level of Consciousness: Fully Conscious Headache: Denies Blurred Vision: No Respiratory Effort: Unlabored; Regular Rhythm; Equal Expansion Nausea/Vomiting: Denies RUQ Epigastric Pain: Denies Lower Extremities Edema: None Degree: None Upper Extremities Edema: None Degree: None Facial Edema: None Fall Risk Assessment History of Falling: (0) No Secondary Diagnosis: (0) No Ambulatory Aid: (0) Bedrest/Nurse Assist IV Therapy: (20) Yes Gait: (0) Normal/Bedrest/Immobile Mental Status: (0) Oriented to Own Ability Fall Score: 20 Fall Risk Score Definition: No Risk: No action required Datetime: 04/20/2017 07:31 Maternal Assessment Level of Consciousness: Fully Conscious Headache: Denies Blurred Vision: No Respiratory Effort: Unlabored Breath Sounds, Left: Clear and Equal Breath Sounds, Right: Clear and Equal Nausea/Vomiting: Denies RUQ Epigastric Pain: Denies Bedside Blood Glucose: 65 Resting Tone [place]: Relaxed Pain Presence: None/Denies Datetime: 04/20/2017 07:24 Stage of : Antepartum Maternal Assessment Level of Consciousness: Fully Conscious Headache: Denies Nausea/Vomiting: Denies RUQ Epigastric Pain: Denies Temperature Route: Oral Labor Evaluation Frequency: 0/hr Monitor Mode: External Heart Rate FHR Baseline Rate: 150 Monitor Mode: External US Variability: Moderate 6-25 bpm Accelerations: 15X15 Decelerations: None Pain Assessment Pain Scale: 0 Pain Presence: None/Denies Vaginal Exam Membrane Status: Intact Vaginal Bleeding: None Datetime: 04/20/2017 07:14 Assessment Type: Ongoing Assessment Datetime: 04/20/2017 07:00 Labor Evaluation Frequency: x2 Monitor Mode: External Duration (sec)2399: 60-70 Quality: Mild Resting Tone [place]: Relaxed Heart Rate FHR Baseline Rate: 140 Monitor Mode: External US Variability: Moderate 6-25 bpm Accelerations: 15X15 Decelerations: None Category: Category I Pain Presence: None/Denies Datetime: 04/20/2017 06:31 Stage of : Antepartum Maternal Assessment Level of Consciousness: Fully Conscious Headache: Denies Blurred Vision: No Temperature Route: Oral Pain Presence: None/Denies Vaginal Bleeding: None Datetime: 04/20/2017 06:00 Labor Evaluation Frequency: x1 Monitor Mode: External Duration (sec)2399: 80 Quality: Mild Resting Tone [place]: Relaxed Heart Rate FHR Baseline Rate: 135 Monitor Mode: External US Variability: Moderate 6-25 bpm Accelerations: 15X15 Decelerations: None Category: Category I Datetime: 04/20/2017 05:00 Labor Evaluation Frequency: x1 Monitor Mode: External Duration (sec)2399: 60 Quality: Mild Resting Tone [place]: Relaxed Heart Rate FHR Baseline Rate: 140 Monitor Mode: External US Variability: Moderate 6-25 bpm Accelerations: 15X15 Decelerations: None Category: Category I Pain Presence: None/Denies Datetime: 04/20/2017 04:00 Maternal Assessment Level of Consciousness: Fully Conscious Headache: Denies Blurred Vision: No Nausea/Vomiting: Denies RUQ Epigastric Pain: Denies Facial Edema: None Labor Evaluation Frequency: 0 Monitor Mode: External Duration (sec)2399: denies Resting Tone [place]: Relaxed Heart Rate FHR Baseline Rate: 135 Monitor Mode: External US Variability: Moderate 6-25 bpm Accelerations: 15X15 Decelerations: None Category: Category I Pain Presence: None/Denies Datetime: 04/20/2017 03:00 Labor Evaluation Frequency: x1 Monitor Mode: External Duration (sec)2399: 60 Quality: Mild Resting Tone [place]: Relaxed Heart Rate FHR Baseline Rate: 135 Monitor Mode: External US Variability: Moderate 6-25 bpm Accelerations: 15X15 Decelerations: None Category: Category I Pain Presence: None/Denies Datetime: 04/20/2017 02:00 Labor Evaluation Frequency: x1 Monitor Mode: External Duration (sec)2399: 50 Quality: Mild Resting Tone [place]: Relaxed Heart Rate FHR Baseline Rate: 135 Monitor Mode: External US Variability: Moderate 6-25 bpm Accelerations: 15X15 Decelerations: None Category: Category I Datetime: 04/20/2017 01:00 Labor Evaluation Frequency: 0 Monitor Mode: External Duration (sec)2399: denies Resting Tone [place]: Relaxed Heart Rate FHR Baseline Rate: 135 Monitor Mode: External US Variability: Moderate 6-25 bpm Accelerations: 15X15 Decelerations: None Category: Category I Pain Presence: None/Denies Datetime: 04/20/2017 00:00 Labor Evaluation Frequency: x1/hr Monitor Mode: External Duration (sec)2399: 60 Quality: Mild Resting Tone [place]: Relaxed Heart Rate FHR Baseline Rate: 140 Monitor Mode: External US Variability: Moderate 6-25 bpm Accelerations: 15X15 Decelerations: None Category: Category I Pain Presence: None/Denies Datetime: 04/19/2017 23:00 Labor Evaluation Frequency: 0 Monitor Mode: External Duration (sec)2399: denies Resting Tone [place]: Relaxed Heart Rate FHR Baseline Rate: 140 Monitor Mode: External US Variability: Moderate 6-25 bpm Accelerations: 15X15 Decelerations: None Category: Category I Pain Presence: None/Denies Datetime: 04/19/2017 22:00 Labor Evaluation Frequency: 0 Monitor Mode: External Duration (sec)2399: denies Resting Tone [place]: Relaxed Heart Rate FHR Baseline Rate: 145 Monitor Mode: External US Variability: Moderate 6-25 bpm Accelerations: 15X15 Decelerations: None Category: Category I Pain Presence: None/Denies Datetime: 04/19/2017 21:00 Labor Evaluation Frequency: 0 Monitor Mode: External Resting Tone [place]: Relaxed Heart Rate FHR Baseline Rate: 140 Monitor Mode: External US Variability: Moderate 6-25 bpm Accelerations: 15X15 Decelerations: None Category: Category I Datetime: 04/19/2017 20:23 Bedside Blood Glucose: 95 Datetime: 04/19/2017 20:00 Labor Evaluation Frequency: x1/hr Monitor Mode: External Duration (sec)2399: 60 Quality: Mild Resting Tone [place]: Relaxed Heart Rate FHR Baseline Rate: 140 Monitor Mode: External US Variability: Moderate 6-25 bpm Accelerations: 15X15 Decelerations: None Category: Category I Pain Presence: None/Denies Datetime: 04/19/2017 19:27 Stage of : Antepartum Assessment Type: Ongoing Assessment Maternal Assessment Level of Consciousness: Fully Conscious DTR's/Clonus: DTRs 2+; No Clonus Headache: Denies Blurred Vision: No Respiratory Effort: Unlabored; Regular Rhythm; Equal Expansion Breath Sounds, Left: Clear and Equal Breath Sounds, Right: Clear and Equal Nausea/Vomiting: Denies RUQ Epigastric Pain: Denies Lower Extremities Edema: None Degree: None Upper Extremities Edema: None Degree: None Facial Edema: None Temperature Route: Oral Fall Risk Assessment History of Falling: (0) No Secondary Diagnosis: (0) No Ambulatory Aid: (0) Bedrest/Nurse Assist IV Therapy: (0) No Gait: (0) Normal/Bedrest/Immobile Mental Status: (0) Oriented to Own Ability Fall Score: 0 Fall Risk Score Definition: No Risk: No action required Pain Presence: None/Denies Vaginal Exam Membrane Status: Intact Vaginal Bleeding: None Datetime: 04/19/2017 18:00 Stage of : Antepartum Maternal Assessment Level of Consciousness: Fully Conscious Headache: Denies Nausea/Vomiting: Denies RUQ Epigastric Pain: Denies Labor Evaluation Frequency: 0/hr Monitor Mode: External Heart Rate FHR Baseline Rate: 145 Monitor Mode: External US Variability: Moderate 6-25 bpm Accelerations: 15X15 Decelerations: None Pain Assessment Pain Scale: 2 Pain Presence: Constant Pain Type: Burning Pain Location: when pt. urinates Datetime: 04/19/2017 17:00 Stage of : Antepartum Maternal Assessment Level of Consciousness: Fully Conscious Headache: Denies Nausea/Vomiting: Denies RUQ Epigastric Pain: Denies Labor Evaluation Frequency: 0/hr Monitor Mode: External Heart Rate FHR Baseline Rate: 145 Monitor Mode: External US Variability: Moderate 6-25 bpm Accelerations: 15X15 Decelerations: None Pain Assessment Pain Scale: 2 Pain Presence: Constant Pain Type: Burning Pain Location: when pt. urinates Datetime: 04/19/2017 16:53 Pain Presence: None/Denies Datetime: 04/19/2017 16:00 Stage of : Antepartum Maternal Assessment Level of Consciousness: Fully Conscious Headache: Denies Nausea/Vomiting: Denies RUQ Epigastric Pain: Denies Labor Evaluation Frequency: 0/hr Monitor Mode: External Heart Rate FHR Baseline Rate: 145 Monitor Mode: External US Variability: Moderate 6-25 bpm Accelerations: 15X15 Decelerations: None Pain Assessment Pain Scale: 2 Pain Presence: Constant Pain Type: Burning Pain Location: when pt. urinates Datetime: 04/19/2017 15:11 Pain Presence: None/Denies Datetime: 04/19/2017 14:50 Fall Score: 20 Fall Risk Score Definition: No Risk: No action required Datetime: 04/19/2017 11:30 Fall Score: 0 Fall Risk Score Definition: No Risk: No action required Datetime: 04/19/2017 10:36 EGA: 34.2 Time Provider Notified: 04/19/2017 11:35 Provider Notified: Bj
== END 2017-04-26 15:45 | disposition home or self-care (01) ==
LOC: L-D 10:51 → OBT 10:51
PROVIDERS: ATTEND Obstetrics & Gynecology
DX: O24.410 Gestational diabetes mellitus in pregnancy, diet controlled (principal); Z3A.35 35 weeks gestation of pregnancy
CPT/HCPCS: 36415; 76818; 96360; 96361; J7120; Z7500; G0463

== ENCOUNTER 2017-04-27 11:52 | Outpatient (CLI) | payer MEDICAID ==
[~2017-04-27] VITALS: Ht 160 cm; Wt 95.0 kg
[2017-04-27 12:03] VITALS: Ht 160 cm; Wt 95.0 kg
[2017-04-27 12:04] VITALS: BP 108/68; PULSE 88; RESP 20
--- NOTE | 2017-04-27 12:54 | PN ---
Triage Information Date/Time Reason for visit: Low AMALIA Weeks of Gestation 35+ /Para 5/2 Diabetes: none Hypertention: none Objective Vital Signs Date Time Temp Pulse Resp B/P Pulse Ox O2 Delivery O2 Flow Rate FiO2 04/27/17 12:04 98.4 88 20 108/68 Room Air Heart Rate: 140's Contractions: None Disposition: Discharge Assessment/Plan Based on Private MD's decision,Patient needs to have Daily AFIs ROM plus test--->if negative ---To be discharged ASCENCION HAMILTON M.D. Apr 27, 2017 12:54
--- NOTE | 2017-04-27 13:25 | RADRPT ---
PROCEDURE: Obstetrical ultrasound for biophysical profile CLINICAL INDICATION: Biophysical profile. . TECHNIQUE: Obstetrical ultrasound of the uterus for biophysical profile. Transabdominal views are obtained. COMPARISON: US PELVIS 04/26/2017 FINDINGS: Single intrauterine gestation. Presentation: Cephalic. Placenta: The anterior - posterior No evidence of placental abruption. No evidence of placenta previa. breathing movement = 2/2 tone = 2/2 motion = 2/2 AMALIA = 2/2 AMALIA = 5.5 cm heart rate: 135 beats per minute IMPRESSION: Single intrauterine gestation. Biophysical profile 12/25 RPTAT: AADD .Rome Dunn MD, MD Date Time Electronically viewed and signed by .Rome Dunn MD, on 04/27/2017 13:25 .B/
--- NOTE | 2017-04-27 13:45 | TRIAGE ---
OB Triage Datetime Report Generated by CPN: 04/27/2017 13:44 Datetime: 04/27/2017 12:38 Level of Consciousness: Fully Conscious DTR's/Clonus: DTRs 2+ Headache: Denies Blurred Vision: No RUQ Epigastric Pain: Denies Facial Edema: None Frequency: NONE Pattern: Normal: <= 5 Contractions in 10 Minutes FHR Baseline Rate: 145 Monitor Mode: External US FHR Baseline Changes: No Baseline Change Variability: Moderate 6-25 bpm Accelerations: 15X15 Decelerations: None Category: Category I Pain Scale: 0 Pain Presence: None/Denies Pain Goal: 0 Membrane Status: Intact Datetime: 04/27/2017 11:59 Arrived By: Ambulatory Arrived From: Home Chief Complaint: LOW AMALIA HX DEMISE PREV Movement: Present Contractions: Denies/Absent Rupture of Membranes: Denies Vaginal Bleeding: None Vaginal Discharge: Denies Recent Sexual Intercouse: Denies Abdominal Trauma: Not Applicable Patient Complaints: Other Time Provider Notified: 04/27/2017 12:15 Provider Notified: MICHAEL Initial Plan: EFM,CALL DR RODRIGUEZ NST BPP Level of Consciousness: Fully Conscious DTR's/Clonus: DTRs 2+; No Clonus Headache: Denies Blurred Vision: No Respiratory Effort: Unlabored; Regular Rhythm; Equal Expansion Breath Sounds, Left: Clear and Equal Breath Sounds, Right: Clear and Equal Nausea/Vomiting: Denies RUQ Epigastric Pain: Denies Facial Edema: None Temperature Route: Axillary History of Falling: (0) No Secondary Diagnosis: (0) No Ambulatory Aid: (0) Bedrest/Nurse Assist IV Therapy: (0) No Gait: (0) Normal/Bedrest/Immobile Mental Status: (0) Oriented to Own Ability Fall Score: 0 Fall Risk Score Definition: No Risk: No action required Datetime: 04/27/2017 11:56 Level of Consciousness: Fully Conscious DTR's/Clonus: DTRs 2+ Headache: Denies Blurred Vision: No Nausea/Vomiting: Denies RUQ Epigastric Pain: Denies Facial Edema: None Frequency: NONE AT THIS TIME Pattern: Normal: <= 5 Contractions in 10 Minutes Resting Tone [place]: Relaxed FHR Baseline Rate: 150 Monitor Mode: External US FHR Baseline Changes: No Baseline Change Variability: Moderate 6-25 bpm Accelerations: 15X15 Decelerations: None Category: Category I Pain Scale: 0 Pain Presence: None/Denies Pain Goal: 0 Membrane Status: Intact Datetime: 04/26/2017 11:10 Assessment Type: Triage Level of Consciousness: Fully Conscious DTR's/Clonus: DTRs 2+; No Clonus Headache: Denies Blurred Vision: No Respiratory Effort: Unlabored; Regular Rhythm; Equal Expansion Breath Sounds, Left: Clear and Equal Breath Sounds, Right: Clear and Equal Nausea/Vomiting: Denies RUQ Epigastric Pain: Denies Lower Extremities Edema: None Degree: None Upper Extremities Edema: None Degree: None Facial Edema: None History of Falling: (0) No Secondary Diagnosis: (0) No Ambulatory Aid: (0) Bedrest/Nurse Assist IV Therapy: (0) No Gait: (0) Normal/Bedrest/Immobile Mental Status: (0) Oriented to Own Ability Fall Score: 0 Fall Risk Score Definition: No Risk: No action required
== END 2017-04-27 14:00 | disposition home or self-care (01) ==
LOC: OBT 11:52 → L-D 11:53 → OBT 14:00
PROVIDERS: ATTEND Obstetrics & Gynecology
DX: O41.93X0 Disorder of amniotic fluid and membranes, unspecified, third trimester, not applicable or unspecified (principal); Z3A.35 35 weeks gestation of pregnancy
CPT/HCPCS: 76818; 84112; Z7500; G0463

== ENCOUNTER 2017-04-28 12:57 | Outpatient (CLI) | payer MEDICAID ==
[~2017-04-28] VITALS: Ht 160 cm; Wt 94.5 kg
[2017-04-28 13:06] VITALS: Ht 160 cm; Wt 94.5 kg
[2017-04-28 13:07] VITALS: BP 114/68; PULSE 80; RESP 19
--- NOTE | 2017-04-28 13:50 | PN ---
Triage Information Date/Time Reason for visit: NST BPP Weeks of Gestation 35+ /Para ... Diabetes: none, gestational Diabetes management: diet controlled Hypertention: none Objective Vital Signs Date Time Temp Pulse Resp B/P Pulse Ox O2 Delivery O2 Flow Rate FiO2 04/28/17 13:07 98.6 80 19 114/68 99 Room Air Heart Rate: 140's Contractions: None Disposition: Discharge Assessment/Plan Discharged with precautions Patient is being followed up with provider ASCENCION HAMILTON M.D. Apr 28, 2017 13:50
--- NOTE | 2017-04-28 14:09 | RADRPT ---
PROCEDURE: OB ultrasound limited for biophysical profile . The CLINICAL INDICATION: Low AMALIA. Gestational diabetes. TECHNIQUE: Multiple sonographic images of the pelvis were obtained. Transabdominal view of the gr avid uterus are available for review. The images were reviewed on a PACS workstation. COMPARISON: 04/27/2017 FINDINGS: breathing movement = 2/2 tone = 2/2 motion = 2/2 Amniotic fluid volume = 2/2 AMALIA = 8.2 cm Cephalic presentation. Heart rate 154 beats per minute. Bilobed anterior and posterior placenta. IMPRESSION: 1. Single viable intrauterine gestation. 2. Biophysical profile = 12/25. 3. AMALIA = 8.2 cm. RPTAT: QQ .Sami Jones MD, Date Time Electronically viewed and signed by .Sami Jones MD, on 04/28/2017 14:09 .L/
--- NOTE | 2017-04-28 14:51 | TRIAGE ---
OB Triage Datetime Report Generated by CPN: 04/28/2017 14:51 Datetime: 04/28/2017 14:02 Level of Consciousness: Fully Conscious DTR's/Clonus: DTRs 1+ Headache: Denies Blurred Vision: No Respiratory Effort: Unlabored Breath Sounds, Left: Clear and Equal Breath Sounds, Right: Clear and Equal Nausea/Vomiting: Denies RUQ Epigastric Pain: Denies Facial Edema: None Frequency: NONE Monitor Mode: External Resting Tone [place]: Relaxed FHR Baseline Rate: 135 Monitor Mode: External US Variability: Moderate 6-25 bpm Accelerations: 15X15 Decelerations: None Category: Category I Pain Scale: 0 Pain Presence: None/Denies Pain Type: N/A Pain Goal: 3 Membrane Status: Intact Datetime: 04/28/2017 13:04 Level of Consciousness: Fully Conscious DTR's/Clonus: DTRs 1+ Headache: Denies Blurred Vision: No Respiratory Effort: Unlabored Breath Sounds, Left: Clear and Equal Breath Sounds, Right: Clear and Equal Nausea/Vomiting: Denies RUQ Epigastric Pain: Denies Facial Edema: None Frequency: NONE Monitor Mode: External Resting Tone [place]: Relaxed FHR Baseline Rate: 140 Variability: Moderate 6-25 bpm Decelerations: None Category: Category I Pain Scale: 0 Pain Presence: None/Denies Pain Type: N/A Pain Goal: 3 Membrane Status: Intact Datetime: 04/28/2017 13:00 Assessment Type: Triage Level of Consciousness: Fully Conscious DTR's/Clonus: DTRs 2+; No Clonus Headache: Denies Blurred Vision: No Respiratory Effort: Unlabored; Regular Rhythm; Equal Expansion Breath Sounds, Left: Clear and Equal Breath Sounds, Right: Clear and Equal Nausea/Vomiting: Denies RUQ Epigastric Pain: Denies Lower Extremities Edema: None Degree: None Upper Extremities Edema: None Degree: None Facial Edema: None History of Falling: (0) No Secondary Diagnosis: (0) No Ambulatory Aid: (0) Bedrest/Nurse Assist IV Therapy: (0) No Gait: (0) Normal/Bedrest/Immobile Mental Status: (0) Oriented to Own Ability Fall Score: 0 Fall Risk Score Definition: No Risk: No action required Datetime: 04/28/2017 12:54 Time of Arrival: 04/28/2017 12:54 EGA: 35.4 Arrived By: Ambulatory Arrived From: Home Chief Complaint: NST AND BPP FOR LOW AMALIA. DENIES LEAKING FLUID AT THIS TIME Movement: Present Contractions: Denies/Absent Rupture of Membranes: Denies Vaginal Discharge: Denies Recent Sexual Intercouse: Denies Abdominal Trauma: Not Applicable Additional Patient Complaints: NONE Time Provider Notified: 04/28/2017 13:10 Provider Notified: ALFONOS Initial Plan: NST AND BPP
== END 2017-04-28 14:05 | disposition home or self-care (01) ==
LOC: OBT 12:57 → L-D 12:58 → OBT 14:05
PROVIDERS: ATTEND Obstetrics & Gynecology
DX: O24.410 Gestational diabetes mellitus in pregnancy, diet controlled (principal); Z3A.35 35 weeks gestation of pregnancy
CPT/HCPCS: 76818; Z7500; G0463

== ENCOUNTER 2017-05-04 09:26 | Outpatient (CLI) | payer MEDICAID ==
[~2017-05-04] VITALS: Ht 160 cm; Wt 96.3 kg
[~2017-05-04 09:26] MED LIST changes: -FAMO-96 PO
[2017-05-04 09:40] VITALS: BP 114/72; PULSE 90; RESP 18; Ht 160 cm; Wt 96.3 kg
--- NOTE | 2017-05-04 10:38 | RADRPT ---
PROCEDURE: US OB biophysical profile. CLINICAL INDICATION: Decreased movements. Gestational diabetes. TECHNIQUE: Multiple sonographic images of the pelvis were obtained. The images were reviewed on a PACS workstation. COMPARISON: 04/28/2017 FINDINGS: There is a viable intrauterine gestation. There is a borderline low normal amount of amniotic fluid with an AMALIA = 7.8 cm. Cardiac activity is present with 182 beats per minute. The placenta is anterior. No evidence of placenta previa or abruption. Biophysical profile: movement 2/2 tone 2/2. breathing 2/2 AMALIA 2/2 Total 12/25 IMPRESSION: Normal biophysical profile. Estimated gestational age: 36 weeks and 3 days RPTAT:AAJJ Physician Katina Date Time Electronically viewed and signed by Physician Katina on 05/04/2017 10:37 /
--- NOTE | 2017-05-04 10:48 | TRIAGE ---
OB Triage Datetime Report Generated by CPN: 05/04/2017 10:48 Datetime: 05/04/2017 10:10 Stage of : OB Triage Level of Consciousness: Fully Conscious Frequency: NONE Monitor Mode: External Resting Tone [place]: Relaxed FHR Baseline Rate: 150 Monitor Mode: External US Variability: Moderate 6-25 bpm Accelerations: 15X15 Decelerations: None Category: Category I Pain Scale: 0 Pain Goal: 3 Membrane Status: Intact Vaginal Bleeding: None Datetime: 05/04/2017 09:37 Assessment Type: Triage Level of Consciousness: Fully Conscious DTR's/Clonus: DTRs 2+; No Clonus Headache: Denies Blurred Vision: No Respiratory Effort: Unlabored; Regular Rhythm; Equal Expansion Breath Sounds, Left: Clear and Equal Breath Sounds, Right: Clear and Equal Nausea/Vomiting: Denies RUQ Epigastric Pain: Denies Lower Extremities Edema: None Degree: None Upper Extremities Edema: None Degree: None Facial Edema: None History of Falling: (0) No Secondary Diagnosis: (0) No Ambulatory Aid: (0) Bedrest/Nurse Assist IV Therapy: (0) No Gait: (0) Normal/Bedrest/Immobile Mental Status: (0) Oriented to Own Ability Fall Score: 0 Fall Risk Score Definition: No Risk: No action required Datetime: 05/04/2017 09:36 Time of Arrival: 05/04/2017 09:21 EGA: 36.3 Arrived By: Ambulatory Arrived From: Home Chief Complaint: PT IS HERE FOR NST/BPP FOR GDM. Movement: Present Contractions: Denies/Absent Rupture of Membranes: Denies Vaginal Bleeding: None Vaginal Discharge: Denies Recent Sexual Intercouse: Denies Abdominal Trauma: Not Applicable Patient Complaints: None Additional Patient Complaints: FBS-71MG/DL Time Provider Notified: 05/04/2017 10:45 Provider Notified: MICHAEL Initial Plan: NST/BPP Datetime: 05/04/2017 09:34 Monitor Mode: External Monitor Mode: External US
--- NOTE | 2017-05-04 11:46 | CONS ---
Date/Time of Note Date/Time of Note DATE: 05/04/17 TIME: 11:40 Consultation Date/Type/Reason Admit Date/Time May 04, 2017 OB triage consult This patient is a 37 years old 5 para 2 ,1 premature delivery and demise at 6 months 1 , 2 ,with last menstrual period of May 29, 2016 which makes her 36 weeks and 3 days. She is being monitored due to gestational diabetes as well as a poor obstetrical history and loss at 6 months. Her lab study during this are fairly normal ,her blood type is O Rh+, hepatitis B surface antigen, HIV, Chlamydia, gonorrhea were all negative ,her RPR was nonreactive and rubella she is immune. Her general vital signs appear to be normal; with blood pressure 114/72, pulse rate 90, respiration 18, temperature 98.4, and oxygen saturation was 98% at room temperature. On examination she is a well-developed well-nourished patient, as I mentioned her general vital signs were normal she did not have very many contractions. at this time the uterus is soft heart tone is normal with fairly good and reactive. heart tone with good variability occasional acceleration no decelerations. . Constitutional: No chills, No diaphoresis, No disoriented, No febrile, No improved, No no complaints, No other, No poor po, No requiring IVF, No requiring O2 Eyes: No discharge, No no complaints, No other, No pain, No redness, No visual change ENT: No bleeding, No congestion, No discharge, No dysphagia, No no complaints, No other, No pain, No sore throat Respiratory: No cough, No no complaints, No other, No pain, No pleuritic pain, No shortness of breath, No sputum, No wheezing Cardiovascular: No chest pain, No edema, No lightheadedness, No no complaints, No orthopenea, No other, No palpitations, No paroxysmal nocturnal dyspnea Gastrointestinal: No blood, No constipation, No decreased appetite, No diarrhea , No flatus, No nausea, No no complaints, No other, No pain, No passing stool, No vomiting Genitourinary: other (Due to lack of any contraction pelvic examination was not performed), No bleeding, No discharge, No dysuria, No flank pain, No hematuria, No no complaints Musculoskeletal: No back pain, No bone/joint pain, No neck pain, No no complaints, No other, No restricted range of motion, No swelling Skin: No bruising, No erythema, No laceration, No no complaints, No other, No pruritis, No rash, No skin lesions Neurologic: other (Knee-jerk reflexes normal), No confusion, No dizziness, No focal-weakness, No headache, No no complaints , No seizure, No syncope Endocrine: other (Her blood glucose level was 71 mg/dL today), No dry skin, No no complaints, No polydypsia, No polyuria, No temp intolerance Lymphatic: No adenopathy, No lymphadema, No no complaints, No other, No tender nodes Psychological: No anxiety, No confusion, No depression, No nl mood/affect, No no complaints, No other, No suicidal Immunologic: No immunodeficiency, No no complaints, No other, No pruritis, No rhinitis, No urticaria Additional Comments On ultrasound study the result is a single live intrauterine gestation with heartbeat of 182 bpm placenta was anterior no evidence of placenta previa biophysical profile was reported 12/25. Amniotic fluid index was 7.8 cm Estimated gestational age based on this ultrasound was given 36 weeks and 3 days. Disposition. These findings were discussed with the patient' Dr. Lorenzo was also informed due to her poor obstetrical history, she will have another NST tomorrow and then eventually another one on Saturday. End of dictation Social History Smoking Status: Never smoker Exam/Review of Systems Vital Signs Vitals Vital Signs Date Time Temp Pulse Resp B/P Pulse Ox O2 Delivery O2 Flow Rate FiO2 05/04/17 09:40 98.4 90 18 114/72 98 Room Air ARIANNA WILLIAM MD May 04, 2017 11:46
== END 2017-05-04 11:30 | disposition home or self-care (01) ==
LOC: OBT 09:26 → L-D 09:27 → OBT 11:30
PROVIDERS: ATTEND Obstetrics & Gynecology
DX: O24.913 Unspecified diabetes mellitus in pregnancy, third trimester (principal); Z3A.36 36 weeks gestation of pregnancy
CPT/HCPCS: 76818; Z7500; G0463

== ENCOUNTER 2017-05-05 08:24 | Inpatient (IN) | payer MEDICAID ==
[~2017-05-05] VITALS: Ht 160 cm; Wt 96.6 kg
[~2017-05-05 08:24] MED LIST changes: -CALC-649
[2017-05-05 08:30] VITALS: Ht 160 cm; Wt 96.6 kg
[2017-05-05 08:31] VITALS: BP 128/65; PULSE 72; RESP 19
--- NOTE | 2017-05-05 09:21 | RADRPT ---
PROCEDURE: Obstetrical ultrasound for biophysical profile CLINICAL INDICATION: Biophysical profile. . TECHNIQUE: Obstetrical ultrasound of the uterus for biophysical profile. Transabdominal views are obtained. COMPARISON: US PELVIS 05/04/2017 FINDINGS: Single intrauterine gestation. Presentation: Cephalic. Mild right-sided hydronephrosis is noted. Minimal left-sided pelviectasis. Placenta: Anterior. No evidence of placental abruption. No evidence of placenta previa. breathing movement = 2/2 tone = 2/2 motion = 2/2 AMALIA = 0/2 AMALIA = 4.6 cm, previously 7.7 cm heart rate: 152 beats per minute IMPRESSION: Single intrauterine gestation. Biophysical profile 10/25 Mild right-sided hydronephrosis is noted. Minimal left-sided pelviectasis. Complete anatomic survey can be obtained for further evaluation. RPTAT: AADD .Rome Dunn MD, MD Date Time Electronically viewed and signed by .Rome Dunn MD, on 05/05/2017 09:21 .B/
--- NOTE | 2017-05-05 09:34 | TRIAGE ---
OB Triage Datetime Report Generated by CPN: 05/05/2017 09:34 Datetime: 05/05/2017 08:46 Frequency: NONE Monitor Mode: External Resting Tone [place]: Relaxed FHR Baseline Rate: 140 Monitor Mode: External US Variability: Moderate 6-25 bpm Accelerations: 15X15 Decelerations: None Category: Category I Pain Scale: 0 Pain Presence: None/Denies Pain Type: N/A Pain Goal: 3 Membrane Status: Intact Datetime: 05/05/2017 08:33 Stage of : OB Triage Assessment Type: Triage Level of Consciousness: Fully Conscious DTR's/Clonus: DTRs 2+; No Clonus Headache: Denies Blurred Vision: No Respiratory Effort: Unlabored; Regular Rhythm; Equal Expansion Breath Sounds, Left: Clear and Equal Breath Sounds, Right: Clear and Equal Nausea/Vomiting: Denies RUQ Epigastric Pain: Denies Lower Extremities Edema: None Degree: None Upper Extremities Edema: None Degree: None Facial Edema: None History of Falling: (0) No Secondary Diagnosis: (0) No Ambulatory Aid: (0) Bedrest/Nurse Assist IV Therapy: (0) No Gait: (0) Normal/Bedrest/Immobile Mental Status: (0) Oriented to Own Ability Fall Score: 0 Fall Risk Score Definition: No Risk: No action required Datetime: 05/05/2017 08:29 Time of Arrival: 05/05/2017 08:29 EGA: 36.4 Arrived By: Ambulatory Arrived From: Home Chief Complaint: PT CAME INFOR F/U NST ANDBPP FOR LOW AMALIA Movement: Present Contractions: Denies/Absent Rupture of Membranes: Denies Vaginal Bleeding: None Vaginal Discharge: Denies Recent Sexual Intercouse: Denies Abdominal Trauma: Not Applicable Patient Complaints: Other Additional Patient Complaints: NONE Time Provider Notified: 05/05/2017 09:03 Provider Notified: MICHAEL Initial Plan: NST AND BPP
[2017-05-05] MEDS: LACTATED RINGER'S 1,000 ML IV SCH ×3 (10:13→23:01)
[2017-05-05 10:25] LABS: BASOPHILS % 0.2 % (0.0-2.0); EOSINOPHILS # 0.1 10^3/ul (0.0-0.5); EOSINOPHILS % 0.9 % (0.0-7.0); HEMATOCRIT 42.3 % (37.0-47.0); LYMPHOCYTES # 1.4 10^3/ul (0.8-2.9); LYMPHOCYTES % 16.4 % (15.0-51.0); MEAN CORPUSCULAR HEMOGLOBIN 29.4 pg (29.0-33.0); MEAN CORPUSCULAR HGB CONC 33.1 g/dl (32.0-37.0); MEAN CORPUSCULAR VOLUME 88.9 fl (82.0-101.0); MEAN PLATELET VOLUME 11.1 fl (7.4-10.4); MONOCYTE # 0.6 10^3/ul (0.3-0.9); NEUTROPHIL # 6.4 10^3/ul (1.6-7.5); NEUTROPHILS % 74.9 % (39.0-77.0); PLATELET COUNT 188 10^3/UL (140-415); RED BLOOD COUNT 4.76 10^6/ul (4.20-5.40); RED CELL DISTRIBUTION WIDTH 13.9 % (11.5-14.5); WHITE BLOOD COUNT 8.5 10^3/ul (4.8-10.8)
[2017-05-05] MEDS ORDERED: GLUCOSE GEL 15 GRAM TUBE PO PRN ×2 (10:30)
[2017-05-05] MEDS ORDERED: DEXTROSE 50% 50 ML SYRINGE IV PRN ×2 (10:30)
[2017-05-05] MEDS ORDERED: GLUCAGON 1 MG INJ IM PRN (10:30)
[2017-05-05] MEDS ORDERED: GLUCOSE GEL 15 GRAM TUBE BUCCAL PRN (10:30)
--- NOTE | 2017-05-05 12:58 | CONS ---
Date/Time of Note Date/Time of Note DATE: 05/05/17 TIME: 12:48 Consultation Date/Type/Reason Admit Date/Time May 05, 2017 OB triage consult This patient is 37 years old, 5, para 2, 2 ,living 1 . She had 2 previous spontaneous vaginal delivery her estimated date of confinement is May 29, 2017 ,which makes her 36 weeks and 4 days today. She came to OB triage due to history of low amniotic fluid and low amniotic fluid index report . She has a gestational diabetes mellitus diet controlled. On examination she is a well-developed well-nourished patient. Somewhat overweight with a weight of 96.6 kg. Her general vital signs are within normal limits, with the blood pressure of 128 /65 ,pulse rate 89, respiration 19, and temperature 98.0. On examination at this time she does not have much of a contraction only scattered contraction . Abdomen is soft. heart rate or normal,and reactive with fairly good variability occasional acceleration no decelerations. Due to lack of effective contractions pelvic examination was not performed Reason for Consultation Laboratory Tests Test 05/05/17 09:50 White Blood Count 8.510^3/ul Red Blood Count 4.7610^6/ul Hemoglobin 14.0g/dl Hematocrit 42.3% Mean Corpuscular Volume 88.9fl Mean Corpuscular Hemoglobin 29.4pg Mean Corpuscular Hemoglobin Concent 33.1g/dl Red Cell Distribution Width 13.9% Platelet Count 78571^3/UL Mean Platelet Volume 11.1fl Neutrophils % 74.9% Lymphocytes % 16.4% Monocytes % 7.0% Eosinophils % 0.9% Basophils % 0.2% Nucleated Red Blood Cells % 0.0/100WBC Neutrophils # 6.410^3/ul Lymphocytes # 1.410^3/ul Monocytes # 0.610^3/ul Eosinophils # 0.110^3/ul Basophils # 0.010^3/ul Nucleated Red Blood Cells # 0.010^3/ul Current Medications Medications (Trade) Dose Ordered Sig/[place] Route PRN Reason Start Time Stop Time Status Last Admin Dose Admin Lactated Ringer's (Lr) 1,000 ml @ 125 mls/hr Q8H IV 05/05/17 09:59 05/05/17 10:13 125 MLS/HR Prenat Multivit/ [place]/Iron/Folic Ac () 1 tab DAILY PO 05/06/17 09:00 Ferrous Sulfate (Ferrous Sulfate (Ec)) 325 mg DAILY PO 05/06/17 09:00 Diagnostic Test (Pha) (Accu-Chek) 1 ea FBSPP XX 05/05/17 13:30 Miscellaneous Information (* Miscellaneous Pharmacy Order) OB HYPOGLYCEMIA ONCE XX 05/05/17 10:00 05/05/17 10:05 DC Miscellaneous Information 1 ea NOTE XX 05/05/17 10:30 Glucose (Glutose) 15 gm Q15M PRN PO DECREASED GLUCOSE 05/05/17 10:30 Glucose (Glutose) 22.5 gm Q15M PRN PO DECREASED GLUCOSE 05/05/17 10:30 Dextrose (D50w Syringe) 25 ml Q15M PRN IV DECREASED GLUCOSE 05/05/17 10:30 Dextrose (D50w Syringe) 50 ml Q15M PRN IV DECREASED GLUCOSE 05/05/17 10:30 Glucagon (Glucagen) 1 mg Q15M PRN IM DECREASED GLUCOSE 05/05/17 10:30 Glucose (Glutose) 15 gm Q15M PRN BUCCAL DECREASED GLUCOSE 05/05/17 10:30 Constitutional: No chills, No diaphoresis, No disoriented, No febrile, No improved, No no complaints, No other, No poor po, No requiring IVF, No requiring O2 Eyes: No discharge, No no complaints, No other, No pain, No redness, No visual change ENT: No bleeding, No congestion, No discharge, No dysphagia, No no complaints, No other, No pain, No sore throat Respiratory: No cough, No no complaints, No other, No pain, No pleuritic pain, No shortness of breath, No sputum, No wheezing Cardiovascular: No chest pain, No edema, No lightheadedness, No no complaints, No orthopenea, No other, No palpitations, No paroxysmal nocturnal dyspnea Gastrointestinal: No blood, No constipation, No decreased appetite, No diarrhea , No flatus, No nausea, No no complaints, No other, No pain, No passing stool, No vomiting Genitourinary: other (As I mentioned due to lack of evidence of labor a pelvic examination was not performed), No bleeding, No discharge, No dysuria, No flank pain, No hematuria, No no complaints Musculoskeletal: No back pain, No bone/joint pain, No neck pain, No no complaints, No other, No restricted range of motion, No swelling Skin: No bruising, No erythema, No laceration, No no complaints, No other, No pruritis, No rash, No skin lesions Neurologic: other (Knee-jerk reflex was normal), No confusion, No dizziness, No focal-weakness, No headache, No no complaints , No seizure, No syncope Endocrine: other (She has gestational diabetes), No dry skin, No no complaints, No polydypsia, No polyuria, No temp intolerance Lymphatic: No adenopathy, No lymphadema, No no complaints, No other, No tender nodes Additional Comments We did an ultrasound study; the report was, single viable intrauterine gestation , in cephalic presentation placenta was anterior ,no evidence of abruption or previa, amniotic fluid index was 4.6 cm with previous amniotic fluid index being 7.7 cm. Her biophysical report was 6/8. Also on ultrasound and mild ,right sided ,hydronephrosis was reported. . With these finding,due to fairly severe oligohydramnios ,she was admitted in the hospital for hydration and follow-up care Social History Smoking Status: Never smoker Exam/Review of Systems Vital Signs Vitals Vital Signs Date Time Temp Pulse Resp B/P Pulse Ox O2 Delivery O2 Flow Rate FiO2 05/05/17 08:31 98.0 72 19 128/65 99 Room Air Results Result Diagram: 05/05/17 0950 Results 24 hrs Laboratory Tests Test 05/05/17 09:50 White Blood Count 8.5 Red Blood Count 4.76 Hemoglobin 14.0 Hematocrit 42.3 Mean Corpuscular Volume 88.9 Mean Corpuscular Hemoglobin 29.4 Mean Corpuscular Hemoglobin Concent 33.1 Red Cell Distribution Width 13.9 Platelet Count 188 Mean Platelet Volume 11.1 #H Neutrophils % 74.9 Lymphocytes % 16.4 Monocytes % 7.0 Eosinophils % 0.9 Basophils % 0.2 Nucleated Red Blood Cells % 0.0 Neutrophils # 6.4 Lymphocytes # 1.4 Monocytes # 0.6 Eosinophils # 0.1 Basophils # 0.0 Nucleated Red Blood Cells # 0.0 Medications Medications Current Medications Lactated Ringer's (Lr) 1,000 ml @ 125 mls/hr Q8H IV Last administered on 05/05t 10:13; Admin Dose 125 MLS/HR; Start 05/05/17 at 09:59 Prenat Multivit/ [place]/Iron/Folic Ac () 1 tab DAILY PO ; Start at 09:00 Ferrous Sulfate (Ferrous Sulfate (Ec)) 325 mg DAILY PO ; Start 05/06/17 at 09: 00 Diagnostic Test (Pha) (Accu-Chek) 1 ea FBSPP XX ; Start 05/05/17 at 13:30 Miscellaneous Information 1 ea NOTE XX ; Start 05/05/17 at 10:30 Glucose (Glutose) 15 gm Q15M PRN PO DECREASED GLUCOSE; Start 05/05/17 at 10:30 Glucose (Glutose) 22.5 gm Q15M PRN PO DECREASED GLUCOSE; Start 05/05/17 at 10: 30 Dextrose (D50w Syringe) 25 ml Q15M PRN IV DECREASED GLUCOSE; Start 05/05/17 at 10:30 Dextrose (D50w Syringe) 50 ml Q15M PRN IV DECREASED GLUCOSE; Start 05/05/17 at 10:30 Glucagon (Glucagen) 1 mg Q15M PRN IM DECREASED GLUCOSE; Start 05/05/17 at 10: 30 Glucose (Glutose) 15 gm Q15M PRN BUCCAL DECREASED GLUCOSE; Start 05/05/17 at 10:30 ARIANNA WILLIAM MD May 05, 2017 12:58
--- NOTE | 2017-05-05 13:49 | HP ---
Date/Time of Note Date/Time of Note DATE: 05/05/17 TIME: 13:45 OB - History Hx of Present Free Text/Dictation 37-year-old female at 36 weeks readmitted for low amniotic fluid Last Menstrual Period: Jul 20, 2016 Estimated Due Date: May 29, 2017 : 5 Para: 2 Spontaneous : 2 Care: Good Care Ultrasounds: Normal mid trimester US Obstetrical Complications: Gestational Diabetes, Other (Decrease amniotic fluid ) Medical Complications: None Past Family/Social History * Past Medical, Surgical, Family and Obstetric Histories reviewed from chart. Blood Type: O+ Rubella: immune RPR/VDRL: Negative GBS Status: Unknown HBsAG: Negative OB Admission Exam Vital Signs Vital Signs Vital Signs Date Time Temp Pulse Resp B/P Pulse Ox O2 Delivery O2 Flow Rate FiO2 05/05/17 08:31 98.0 72 19 128/65 99 Room Air Physical Exam HEENT: WNL Heart: Rhythm Normal Lungs: Clear, Equal Abdomen: WNL Extremities: Normal Reflexes: Normal Effacement: 0% Station: -3 Membranes: Intact Heart Rate: 150's Accelerations: Accelerations Present Decelerations: No Decelerations Varibility: Marked Contractions on Admission: None Last 72 hours Lab Results CBC & BMP 05/05/17 09:50 OB Assessment/Plan Other Assessment: 36 weeks gestation Gestational diabetes Decreased amniotic fluid Study of demise Other plan: Admitted for management of oligohydramnios ROBERT OTTO MD May 05, 2017 13:48
[2017-05-05] MEDS: ACCU-CHEK XX SCH ×2 (19:30→19:35)
--- NOTE | 2017-05-06 03:27 | CONS ---
DATE OF ADMISSION: 05/05/2017 DATE OF CONSULTATION: 05/05/2017 HISTORY OF PRESENT ILLNESS: The patient was admitted yesterday with an AMALIA of 7 cm. Today, AMALIA is 3.8 I believe. They have checked for rupture of membrane and the nurse reports there is no rupture of membrane. The patient denies any leakage of fluid. OB history is significant for gestational di abetes, currently controlled on diet. PHYSICAL EXAMINATION: VITAL SIGNS: Stable. Physical examination deferred. heart tones reassuring for gestational age. CONTRACTIONS: None. IMPRESSION: Intrauterine at 36 weeks and 4 days with oligohydramnios without rupture of m embranes. heart tone is reassuring. Gestational diabetes controlled. RECOMMENDATIONS: Continue with IV and p.o. hydration, in house management with continuous hea rt tone monitoring until 37 weeks. If there is evidence of nonreassuring heart tones or if th e AMALIA continues to decrease then delivery at an earlier time is recommended. Otherwise, we will ree valuate at 37 weeks. Dictated By: KEON MCKENZIE MD ST/BASIM Conf#: [id number] DID#: [id number] CC: ROBERT OTTO MD;*EndCC*
[2017-05-06] MEDS: LACTATED RINGER'S 1,000 ML IV SCH ×3 (07:07→22:57)
[2017-05-06] MEDS: ACCU-CHEK XX SCH ×4 (08:30→19:30)
[2017-05-06] MEDS: FERROUS SULFATE (EC) 325 MG TAB PO SCH (09:25)
[2017-05-06] MEDS: PRENATAL VITAMIN PO SCH (09:26)
--- NOTE | 2017-05-06 10:34 | RADRPT ---
PROCEDURE: US OB biophysical profile. CLINICAL INDICATION: Low amniotic fluid index TECHNIQUE: Multiple sonographic images of the pelvis were obtained. The images were reviewed on a PACS workstation. COMPARISON: US PELVIS 05/05/2017 . FINDINGS: There is a single live intrauterine , in cephalic presentation. A normal heart rate i s identified measuring 154 beats per minute. The amniotic fluid index is low measuring 4.3 cm. The p lacenta is grade II located anteriorly. Biophysical profile: movement 2/2 tone 2/2. breathing 2/2 AMALIA 0/2 Total 6/8 IMPRESSION: 1. Biophysical profile score of 6/8. 2. Single live intrauterine in cephalic presentation with normal heart rate of 154 b pm. 3. Low amniotic fluid index of 4.3 cm, consistent with oligohydramnios. RPTAT: AAPP Physician Sameera Date Time Electronically viewed and signed by Physician Sameera on 05/06/2017 10:34 OBED/
--- NOTE | 2017-05-06 10:37 | RADRPT ---
PROCEDURE: Obstetrical ultrasound. CLINICAL INDICATION: , evaluation. Pelvic pain. Oligohydramnios. TECHNIQUE: Transabdominal sonographic images of the uterus obtained after first trimester , greater than 14 weeks gestation. Single intrauterine gestation present. COMPARISON: US PELVIS 05/05/2017 FINDINGS: Single intrauterine gestation. There is a cephalic presentation. Measurements were made in order to determine age. The results are as follows: BPD = 37 weeks 0 day(s) HC = 37 weeks 6 day(s) AC = 36 weeks 5 day(s) FL = 33 weeks 4 day(s) AMALIA = not measured Heart rate = 146 beats per minute The placenta is anterior. There is no evidence for an abruption or placenta previa. Ovaries are not visualized. IMPRESSION: Single intrauterine gestation of approximately 36 weeks 2 days by ultrasound criteria. [place] estimated weight = 2849 g; 37 percentile for gestational age of 36 weeks 5 days. RPTAT: AADD .Rome Dunn MD, MD Date Time Electronically viewed and signed by .Rome Dunn MD, on 05/06/2017 10:37 .B/
--- NOTE | 2017-05-06 20:10 | PN ---
Date/Time of Note Date/Time of Note DATE: 05/06/17 TIME: 20:07 OB Subjective Subjective Subjective Has no complaint of labor pain and no major complaints OB Objective Objective Objective Vital signs stable in general physical exam is unchanged The heart tones are reactive After IV hydration amniotic fluid index is a stable 4.3 At the time of writing of this note ROM plus is pending Estimation of weight is 2849 g OB Assessment/Plan Other Assessment: 36 weeks and 4 days gestation Oligohydramnios Other plan: Consult perinatology surgery delivery time and most probably deliver patient at 37 weeks ROBERT OTTO MD May 06, 2017 20:10
[2017-05-07] MEDS: LACTATED RINGER'S 1,000 ML IV SCH ×3 (06:57→22:55)
[2017-05-07] MEDS: ACCU-CHEK XX SCH ×4 (08:12→20:35)
[2017-05-07] MEDS: PRENATAL VITAMIN PO SCH (10:29)
[2017-05-07] MEDS: FERROUS SULFATE (EC) 325 MG TAB PO SCH (10:29)
--- NOTE | 2017-05-07 11:32 | NSTRPT ---
NST Information Datetime Report Generated by CPN: 05/07/2017 11:32 Datetime: 05/03/2017 13:00 NST Information EGA: 36.2 NST Duration (Min): 28 Datetime: 05/02/2017 10:45 NST Information EGA: 36.1 NST Duration (Min): 58 Datetime: 05/01/2017 08:56 NST Information EGA: 36.0 NST Duration (Min): 41 Electronically Signed By E-Signature: with User ID: [id number] Datetime: 04/30/2017 09:15 NST Information EGA: 35.6 NST Duration (Min): 29 Datetime: 04/29/2017 10:05 Electronically Signed By E-Signature: with User ID: [id number] Datetime: 04/26/2017 08:08 NST Information EGA: 35.2 NST Duration (Min): 58 Datetime: 04/25/2017 09:20 NST Information EGA: 35.1 NST Duration (Min): 31 Datetime: 04/22/2017 09:21 NST Information EGA: 34.5 NST Duration (Min): 43 Datetime: 04/19/2017 09:10 NST Information EGA: 34.2 NST Duration (Min): 30 Datetime: 04/18/2017 08:55 NST Information EGA: 34.1 NST Duration (Min): 26 Datetime: 04/15/2017 09:54 NST Information EGA: 33.5 NST Duration (Min): 26 Datetime: 04/09/2017 10:12 NST Information EGA: 32.6 NST Duration (Min): 26 Datetime: 04/04/2017 10:09 NST Information EGA: 32.1 Datetime: 04/04/2017 09:50 NST Duration (Min): 73
--- NOTE | 2017-05-07 19:22 | PN ---
Date/Time of Note Date/Time of Note DATE: 05/07/17 TIME: 19:21 OB Subjective Subjective Subjective NO major complaints OB Objective Objective Objective VSS general P/E is normal OB Assessment/Plan Other Assessment: 36.6 weeks gestation oligohydramnios Other plan: Induce next day ROBERT OTTO MD May 07, 2017 19:22
[2017-05-08] MEDS: ACCU-CHEK XX SCH ×4 (06:00→20:15)
[2017-05-08] MEDS: LACTATED RINGER'S 1,000 ML IV SCH ×2 (06:29→10:09)
[2017-05-08] MEDS: PRENATAL VITAMIN PO SCH (09:37)
[2017-05-08] MEDS: FERROUS SULFATE (EC) 325 MG TAB PO SCH (09:37)
[2017-05-08] MEDS ORDERED: DINOPROSTONE 10 MG VAG SUPP ONE (10:27)
[2017-05-08] MEDS ORDERED: CARBOPROST 250 MCG INJ IM PRN (10:30)
[2017-05-08] MEDS ORDERED: BUTORPHANOL 2 MG INJ IV PRN (10:30)
[2017-05-08] MEDS ORDERED: DINOPROSTONE 10 MG VAG SUPP VAG ONE ×2 (10:30→23:30)
[2017-05-08] MEDS ORDERED: MISOPROSTOL 200 MCG TAB PR PRN (10:30)
[2017-05-08] MEDS ORDERED: AMPICILLIN 2 GM/NS (PMX) 100 ML IV ONE (10:30)
[2017-05-08] MEDS ORDERED: LIDOCAINE 1% (MPF) 30 ML INJ INJ PRN (10:30)
[2017-05-08] MEDS ORDERED: METHYLERGONOVINE 0.2 MG INJ IM PRN (10:30)
[2017-05-08] MEDS ORDERED: OXYTOCIN 30 UNITS/LR 500 ML IV SCH ×2 (10:30)
[2017-05-08] MEDS ORDERED: OXYTOCIN 30 UNITS/LR 500 ML IV PRN (10:30)
[2017-05-08] MEDS ORDERED: IBUPROFEN 600 MG TAB PO PRN (10:30)
[2017-05-08 14:58] LABS: BASOPHILS % 0.3 % (0.0-2.0); EOSINOPHILS # 0.1 10^3/ul (0.0-0.5); EOSINOPHILS % 0.9 % (0.0-7.0); HEMATOCRIT 37.5 % (37.0-47.0); HEMOGLOBIN 12.9 g/dl (12.0-16.0); LYMPHOCYTES # 1.7 10^3/ul (0.8-2.9); LYMPHOCYTES % 22.5 % (15.0-51.0); MEAN CORPUSCULAR HEMOGLOBIN 30.1 pg (29.0-33.0); MEAN CORPUSCULAR HGB CONC 34.4 g/dl (32.0-37.0); MEAN CORPUSCULAR VOLUME 87.6 fl (82.0-101.0); MEAN PLATELET VOLUME 10.6 fl (7.4-10.4); MONOCYTE # 0.5 10^3/ul (0.3-0.9); MONOCYTES % 6.6 % (0.0-11.0); NEUTROPHIL # 5.1 10^3/ul (1.6-7.5); NEUTROPHILS % 69.4 % (39.0-77.0); PLATELET COUNT 186 10^3/UL (140-415); RED BLOOD COUNT 4.28 10^6/ul (4.20-5.40); RED CELL DISTRIBUTION WIDTH 14.2 % (11.5-14.5); WHITE BLOOD COUNT 7.4 10^3/ul (4.8-10.8)
[2017-05-08 15:15] LABS: INR 0.88; PARTIAL THROMBOPLASTIN TIME 28.3 Sec (25.0-35.0); PT RATIO 0.9
[2017-05-08] MEDS: AMPICILLIN 1 GM/NS (PMX) 50 ML IV SCH ×3 (15:37→23:57)
--- NOTE | 2017-05-08 19:15 | PN ---
Date/Time of Note Date/Time of Note DATE: 05/08/17 TIME: 19:13 OB Subjective Subjective Subjective No complaint of labor pains OB Objective Objective Objective Vital signs stable general physical exam is unchanged Cervical exam is long and closed OB Assessment/Plan Other Assessment: Oligohydramnios at 37 weeks Gestational diabetes class A1 Other plan: Induce labor Via Cervidil Perinatology was informed and agreed with the management ROBERT OTTO MD May 08, 2017 19:14
[2017-05-08] MEDS ORDERED: MINERAL OIL LIGHT 10 ML VIAL TOP ONE (23:00)
[2017-05-09] MEDS: LACTATED RINGER'S 1,000 ML IV SCH ×4 (02:09→07:14)
[2017-05-09] MEDS: AMPICILLIN 1 GM/NS (PMX) 50 ML IV SCH ×3 (03:53→11:54)
[2017-05-09] MEDS ORDERED: FENTAnyl 2MCG/ML-ROPIV 0.2% 100 ML BAG EPI SCH (06:30)
[2017-05-09] MEDS ORDERED: NALOXONE (0.4 MG/ML) INJ IV PRN (06:30)
[2017-05-09] MEDS ORDERED: DIPHENHYDRAMINE 50 MG INJ IV PRN (06:30)
[2017-05-09] MEDS ORDERED: ONDANSETRON 4 MG INJ IV PRN (06:30)
[2017-05-09] MEDS: FERROUS SULFATE (EC) 325 MG TAB PO SCH (09:00)
[2017-05-09] MEDS: PRENATAL VITAMIN PO SCH (09:00)
--- NOTE | 2017-05-09 13:43 | LDN ---
Date/Time of Note Date/Time of Note DATE: 05/09/17 TIME: 13:40 Delivery Summary Normal spontaneous vaginal delivery of a viable over intact perineum Weeks of Gestation 37 weeks plus Placenta Delivered: Spontaneously, Intact & Complete Meconium: none Episiotomy: No Perineal laceration: 0 Laceration repair: 2 times vestibular laceration were repaired using 4-0 chromic, paraurethral laceration was also reapproximated using 4-0 chromic, small vaginal laceration was repaired using 4-0 chromic in layers Anesthesia type: Epidural Estimated blood loss: 300 Sponge & Needle done & correct: Yes All needle counts correct: Yes Any foreign bodies felt in the: No Problems: Delivery Information Sex Sex: male Apgars 1 Minute: 9 5 Minute: 9 Suctioning Nose & mouth suctioned at speedy: Yes Delee suction performed: No Umbilical Cord Umbilical cord with: 3 Vessels Cord presentations: no nuchal cord Cord Blood was obtained: Yes Mother & Baby Disposition Disposition Mom & Baby to Maternity; Good: Yes (Mother and baby were recovered in good condition) Mom transferred to: Other (Maternity) Baby to NICU: No ROBERT OTTO MD May 09, 2017 13:43
[2017-05-09 15:45] VITALS: BP 112/59; PULSE 65; RESP 20
[2017-05-09] MEDS ORDERED: METHYLERGONOVINE 0.2 MG INJ IM PRN (16:00)
[2017-05-09] MEDS ORDERED: MISOPROSTOL 200 MCG TAB PR PRN (16:00)
[2017-05-09] MEDS ORDERED: ZOLPIDEM 5 MG TAB PO PRN (16:00)
[2017-05-09] MEDS ORDERED: OXYTOCIN 30 UNITS/LR 500 ML IV PRN (16:00)
[2017-05-09] MEDS ORDERED: LANOLIN 7 GM TUBE TOP PRN (16:00)
[2017-05-09] MEDS ORDERED: HYDROCODONE/APAP (5/325) TAB PO PRN ×2 (16:00)
[2017-05-09] MEDS ORDERED: DIBUCAINE 1% 30 GM OINT PR PRN (16:00)
[2017-05-09] MEDS ORDERED: BENZOCAINE 20% 56 ML SPRAY TOP PRN (16:00)
[2017-05-09] MEDS ORDERED: CARBOPROST 250 MCG INJ IM PRN (16:00)
[2017-05-09] MEDS ORDERED: WITCH HAZEL/GLYCERIN PAD PR PRN (16:00)
[2017-05-09 16:15] VITALS: BP 116/59; PULSE 67; RESP 18
[2017-05-09] MEDS: IBUPROFEN 600 MG TAB PO SCH (18:01)
[2017-05-09] MEDS: CEPHALEXIN 500 MG CAP PO SCH (18:02)
[2017-05-09 19:30] VITALS: BP 111/80; PULSE 76; RESP 19
[2017-05-09] MEDS: ACCU-CHEK XX SCH ×2 (19:35→20:05)
[2017-05-09] MEDS: LACTATED RINGER'S 1,000 ML IV* SCH ×2 (20:06→23:52)
[2017-05-09] MEDS: metFORMIN (XR) 500 MG TAB PO SCH (21:00)
[2017-05-09] MEDS: MAGNESIUM HYDROXIDE 30ML CUP PO SCH (21:36)
[2017-05-09] MEDS: SENNA/DOCUSATE NA (8.6MG/50MG) TAB PO SCH (21:36)
[2017-05-10] VITALS (7 sets, daily range): BP systolic 107–127; BP diastolic 69–85; PULSE 67–82; RESP 16–19
[2017-05-10] MEDS: IBUPROFEN 600 MG TAB PO SCH ×4 (00:03→18:00)
[2017-05-10] MEDS: CEPHALEXIN 500 MG CAP PO SCH ×4 (00:03→18:00)
[2017-05-10] MEDS: ACCU-CHEK XX SCH ×4 (07:30→21:35)
[2017-05-10] MEDS: MAGNESIUM HYDROXIDE 30ML CUP PO SCH ×2 (08:40→21:32)
[2017-05-10] MEDS: SENNA/DOCUSATE NA (8.6MG/50MG) TAB PO SCH ×2 (08:41→21:32)
[2017-05-10] MEDS: metFORMIN (XR) 500 MG TAB PO SCH ×2 (08:51→21:00)
[2017-05-10 09:21] LABS: BASOPHILS % 0.3 % (0.0-2.0); EOSINOPHILS # 0.1 10^3/ul (0.0-0.5); HEMATOCRIT 36.1 % (37.0-47.0); HEMOGLOBIN 12.2 g/dl (12.0-16.0); LYMPHOCYTES # 2.2 10^3/ul (0.8-2.9); LYMPHOCYTES % 21.7 % (15.0-51.0); MEAN CORPUSCULAR HEMOGLOBIN 29.8 pg (29.0-33.0); MEAN CORPUSCULAR HGB CONC 33.8 g/dl (32.0-37.0); MEAN PLATELET VOLUME 10.4 fl (7.4-10.4); MONOCYTE # 0.5 10^3/ul (0.3-0.9); MONOCYTES % 5.4 % (0.0-11.0); NEUTROPHIL # 7.1 10^3/ul (1.6-7.5); NEUTROPHILS % 71.2 % (39.0-77.0); PLATELET COUNT 185 10^3/UL (140-415); RED CELL DISTRIBUTION WIDTH 14.1 % (11.5-14.5); WHITE BLOOD COUNT 9.9 10^3/ul (4.8-10.8)
--- NOTE | 2017-05-10 16:00 | DS ---
Date/Time of Note Date/Time of Note Home today or next day DATE: 05/10/17 TIME: 15:53 Obstetrical Discharge Record Final Diagnosis Final Diagnosis: Term delivered Other Final Diagnosis Status post vaginal delivery Vaginal Delivery Obstetrical Delivery: Spontaneous, Laceration, Repaired Complications Gestational Diabetes, Other (Oligohydramnios) Augmentation: No Induction: Yes Condition on Discharge Physical Assessment Last Vitals: See nurse's notes Voiding: Yes Bowel Movement: Yes Breast: Soft, non-tender, Filling Fundus: Firm Abdomen and Incision: Abdomen is soft and not distended bowel sounds present Fundus is firm at U Episiotomy: Not applicable Perineum healing Calf Tenderness: No Patient Condition: Good ROBERT OTTO MD May 10, 2017 16:00
--- NOTE | 2017-05-10 16:01 | PD.PPDC ---
[employer] Discharge Instruction Provider Information Physician Information 37-year-old female had vaginal delivery Diagnosis Final Diagnosis: Status post vaginal delivery Condition Patient Condition: Good Diet Diet: Special Diet Special Diet: 1800-calorie ADA Activity/Restrictions Activity: Normal Activity May Shower Restrictions: Nothing in the Vagina Return to Work or School: Jun 24, 2017 Follow-up Follow-up with Physician: 4, Week/Weeks (In clinic) Return to clinic for OB Instructions: Breast Tenderness Depression Comment: Pelvic rest for 6 weeks ROBERT OTTO MD May 10, 2017 16:01
[2017-05-10] MEDS ORDERED: IBUP-1542 PO ×2 (16:04→17:38)
[2017-05-11] MEDS: CEPHALEXIN 500 MG CAP PO SCH ×3 (00:19→12:00)
[2017-05-11] MEDS: IBUPROFEN 600 MG TAB PO SCH ×3 (00:19→12:22)
[2017-05-11 04:00] VITALS: BP 125/80; PULSE 69; RESP 18
[2017-05-11] MEDS: SENNA/DOCUSATE NA (8.6MG/50MG) TAB PO SCH (08:23)
[2017-05-11 08:30] VITALS: BP 117/63; PULSE 73; RESP 16
[2017-05-11] MEDS: ACCU-CHEK XX SCH (08:43)
[2017-05-11] MEDS: MAGNESIUM HYDROXIDE 30ML CUP PO SCH (08:43)
[2017-05-11] MEDS: metFORMIN (XR) 500 MG TAB PO SCH (08:43)
[2017-05-11] MEDS ORDERED: DIPHTH/TET/ACEL PERTUSS (ADULT) 0.5 ML VIAL IM* ONE (09:00)
[2017-05-11] MEDS ORDERED: VARICELLA VACCINE LIVE/PF 1,350 UNIT/0.5 ML ML SC* ONE (09:00)
[2017-05-11] MEDS ORDERED: MEASLES,MUMPS,RUBELLA VACCINE INJ SC* ONE (09:00)
== END 2017-05-11 16:20 | disposition home or self-care (01) | DRG 775 ==
LOC: OBT 08:24 → L-D 08:25 → OBT 09:35 → L-D 05-09 05:55 → PP1 05-09 15:29
PROVIDERS: ADMIT Obstetrics & Gynecology; ATTEND Obstetrics & Gynecology
PROC: 10E0XZZ Delivery of Products of Conception, External Approach (ICD-10-PCS; principal; 2017-05-09)
PROC: 0UQMXZZ Repair Vulva, External Approach (ICD-10-PCS; 2017-05-09)
PROC: 3E033VJ Introduction of Other Hormone into Peripheral Vein, Percutaneous Approach (ICD-10-PCS; 2017-05-09)
DX: O24.429 Gestational diabetes mellitus in childbirth, unspecified control (principal); O41.03X0 Oligohydramnios, third trimester, not applicable or unspecified; O71.82 Other specified trauma to perineum and vulva; Z3A.37 37 weeks gestation of pregnancy; Z37.0 Single live birth
CPT/HCPCS: 62319; 76815; 76818; 82962; 84112; 85025; 85610; 85730; 86592; 86850; 86900; 86901; 87081; 87340; 90715; 90716; G0463; J0290; J2405; J2590; J3010; J7120